=== PATIENT | male | born 1935 | race Caucasian/White ===

== ENCOUNTER 2018-04-02 10:12 | Emergency (ER) | payer OTHER ==
[2018-04-02] MEDS ORDERED: NS 1,000 ML IV ONE (10:26)
--- NOTE | 2018-04-02 10:43 | EDPHY ---
H & P Stated Complaint: no-prod cough/fever/chills x5D [employer] [address] [address] [employer]. Time Seen by Provider: 04/02/18 10:23 HPI/ROS: CHIEF COMPLAINT: Fever, chills, rigors, cough HISTORY OF PRESENT ILLNESS: The patient presents to the ED with 4 days of progressive fever, chills, rigors and a dry nonproductive cough. The patient is currently visiting [place] from [facility]. The patient denies any vomiting or diarrhea. The patient does report a prior history of TIA and cholecystectomy. The patient denies any skin rash. He does complain of myalgias and arthralgias. The patient reports that his symptoms are moderate to severe in nature. REVIEW OF SYSTEMS: A comprehensive 10 point review of systems is otherwise negative aside from elements mentioned in the history of present illness. Source: Patient Exam Limitations: No limitations - Personal History Current Tetanus/Diphtheria Vaccine: Yes - Medical/Surgical History Hx Asthma: No Hx Chronic Respiratory Disease: No Hx Diabetes: No Hx Cardiac Disease: No Hx Renal Disease: No Hx Cirrhosis: No Hx Alcoholism: No Hx HIV/AIDS: No Hx Splenectomy or Spleen Trauma: No Other PMH: Cardiac stent, cholycystectomy, - Social History Smoking Status: Never smoked - Physical Exam Exam: General Appearance: Alert, no distress Eyes: Pupils equal and round no pallor or injection ENT, Mouth: Mucous membranes moist Respiratory: There are no retractions, lungs are clear to auscultation Cardiovascular: Tachycardic Gastrointestinal: Abdomen is soft and nontender, no masses, bowel sounds normal Neurological: A&O, normal motor function, normal sensory exam, normal cranial nerves Skin: Warm and dry, no rashes, no petechiae or purpura noted Musculoskeletal: Neck is supple nontender, specifically no meningeal symptoms Extremities: symmetrical, full range of motion Constitutional: Initial Vital Signs Temperature (C) 36.5 C 04/02/18 10:18 Heart Rate 109 H 04/02/18 10:18 Respiratory Rate 20 04/02/18 10:18 Blood Pressure 172/93 H 04/02/18 10:18 O2 Sat (%) 92 04/02/18 10:18 O2 Delivery Mode Room Air O2 (L/minute) 2 Allergies/Adverse Reactions: codeine Allergy (Verified 04/02/18 10:18) Medical Decision Making - Diagnostics Imaging Results: Imaging Impressions Chest X-Ray 04/02/18 10:26 Impression: Right upper lobe infiltrate versus nodule versus rib abnormality. Possible mild right hilar adenopathy. Considering the patient's cough, consider appropriate treatment followed by short interval follow-up chest x-ray. If there are any old outside chest x-rays, we would be happy to review them to assess for interval change. If the nodule persists or if the patient will not be treated for infection, then recommend noncontrast chest CT. Results discussed with Dr. Velasquez Jordan at 10:54 AM. ED Course/Re-evaluation: Patient presents the ED with flu-like symptoms for the past 5 days. The patient 's influenza a test is positive. Chest x-ray demonstrates underlying changes most consistent with a likely infection from his influenza. The patient's laboratory studies are otherwise normal. Patient did receive IV fluid rehydration in the emergency department. Given the duration of the patient's symptoms he is not a candidate for Tamiflu or other antiviral medications. The patient will be discharged home with instructions to take Tylenol as needed for fever management. He is given a prescription for Zofran. Patient is advised to return to the ED for markedly worsening respiratory symptoms or other acute concerns. Differential Diagnosis: Differential diagnosis considered includes influenza, pneumonia, dehydration, metabolic derangement, viral syndrome - Data Points Laboratory Results: Laboratory Results 04/02/18 10:40 04/02/18 10:40 04/02/18 04/02/18 04/02/18 10:40 10:40 10:25 WBC 8.73 10^3/uL 10^3/uL (3.80-9.50) RBC 4.26 10^6/uL L 10^6/uL (4.40-6.38) Hgb 13.3 g/dL L g/dL (13.7-17.5) Hct 39.2 % L % (40.0-51.0) MCV 92.0 fL fL (81.5-99.8) MCH 31.2 pg pg (27.9-34.1) MCHC 33.9 g/dL g/dL (32.4-36.7) RDW 13.2 % % (11.5-15.2) Plt Count 205 10^3/uL 10^3/uL (150-400) MPV 10.6 fL fL (8.7-11.7) Neut % (Auto) 75.2 % H % (39.3-74.2) Lymph % (Auto) 15.2 % % (15.0-45.0) [place] % (Auto) 8.7 % % (4.5-13.0) Eos % (Auto) 0.2 % L % (0.6-7.6) Baso % (Auto) 0.1 % L % (0.3-1.7) Nucleat RBC Rel Count 0.0 % % (0.0-0.2) Absolute Neuts (auto) 6.56 10^3/uL H 10^3/uL (1.70-6.50) Absolute Lymphs (auto) 1.33 10^3/uL 10^3/uL (1.00-3.00) Absolute Monos (auto) 0.76 10^3/uL 10^3/uL (0.30-0.80) Absolute Eos (auto) 0.02 10^3/uL L 10^3/uL (0.03-0.40) Absolute Basos (auto) 0.01 10^3/uL L 10^3/uL (0.02-0.10) Absolute Nucleated RBC 0.00 10^3/uL 10^3/uL (0-0.01) Immature Gran % 0.6 % % (0.0-1.1) Immature Gran # 0.05 10^3/uL 10^3/uL (0.00-0.10) Sodium 138 mEq/L mEq/L (135-145) Potassium 4.0 mEq/L mEq/L (3.5-5.2) Chloride 105 mEq/L mEq/L (97-110) Carbon Dioxide 22 mEq/l mEq/l (22-31) Anion Gap 11 mEq/L mEq/L (6-14) BUN 23 mg/dL mg/dL (7-23) Creatinine 1.2 mg/dL mg/dL (0.7-1.3) Estimated GFR 58 Glucose 172 mg/dL H mg/dL (70-100) Calcium 8.4 mg/dL L mg/dL (8.5-10.4) Nasal Influenza A PCR FLU A DETECTED H (NEGATIVE) Nasal Influenza B PCR NEGATIVE FOR FLU B (NEGATIVE) Medications Given: Discontinued Medications Acetaminophen (Tylenol) 650 mg PO EDNOW ONE Stop: 04/02/18 11:42 Last Admin: 04/02/18 11:44 Dose: 650 mg Sodium Chloride (Ns) 1,000 mls @ 0 mls/hr IV ONCE ONE; Wide Open PRN Reason: Protocol Stop: 04/02/18 10:27 Last Admin: 04/02/18 10:40 Dose: 1,000 mls Departure - Departure Disposition: Home, Routine, Self-Care Clinical Impression: Influenza A Condition: Serious Instructions: Influenza (ED) Additional Instructions: 1. Tylenol and ibuprofen as needed for pain and fever. 2. Zofran as needed for nausea. 3. Albuterol inhaler 2 puffs every 4 hr as needed for cough and shortness of breath. 4. Please return to the ED for markedly worsening respiratory symptoms or other acute concerns.
[2018-04-02 10:53] LABS: PLATELET COUNT 205 10^3/uL (150-400)
[2018-04-02] MEDS ORDERED: ACETAMINOPHEN 325 MG TAB PO ONE (11:41)
[2018-04-02 12:24] VITALS: BP 128/75
== END 2018-04-02 12:22 | disposition home or self-care (01) ==
DX: J09.X2 Influenza due to identified novel influenza A virus with other respiratory manifestations (principal); E86.9 Volume depletion, unspecified; Z95.5 Presence of coronary angioplasty implant and graft; Z90.89 Acquired absence of other organs; Z86.73 Personal history of transient ischemic attack (TIA), and cerebral infarction without residual deficits

== ENCOUNTER 2018-04-03 16:13 | Inpatient (IN) | payer OTHER ==
--- NOTE | 2018-04-03 16:22 | EDPHY ---
H & P Time Seen by Provider: 04/03/18 16:22 HPI/ROS: CHIEF COMPLAINT: Recently diagnosed with influenza, increasing weakness, fall at home HISTORY OF PRESENT ILLNESS: The patient was seen at the emergency department yesterday and diagnosed with influenza. He was discharged home with instructions to use Zofran, Tylenol and ibuprofen. Over the past day he is becoming increasingly weak and dehydrated. He had a fall while walking earlier today. The patient did strike his eyebrow. He denies significant headache. He is not anticoagulated. He is reporting increasing dyspnea. He did have one episode of acute vomiting. REVIEW OF SYSTEMS: A comprehensive 10 point review of systems is otherwise negative aside from elements mentioned in the history of present illness. Source: Patient Exam Limitations: No limitations - Medical/Surgical History Hx Asthma: No Hx Chronic Respiratory Disease: No Hx Diabetes: No Hx Cardiac Disease: No Hx Renal Disease: No Hx Cirrhosis: No Hx Alcoholism: No Hx HIV/AIDS: No Hx Splenectomy or Spleen Trauma: No Other PMH: Cardiac stent, cholycystectomy, - Social History Smoking Status: Never smoked - Physical Exam Exam: General Appearance: Elderly male, appears weak Eyes: Pupils equal and round no pallor or injection ENT, Mouth: Dry mucous membranes Respiratory: Rhonchorous breath sounds bilaterally Cardiovascular: Regular rate and rhythm Gastrointestinal: Abdomen is soft and nontender, no masses, bowel sounds normal Neurological: 5/5 strength all 4 extremities Skin: Warm and dry, no rashes Musculoskeletal: Neck is supple nontender Extremities: symmetrical, full range of motion Psychiatric: Patient is oriented X 3, there is no agitation Constitutional: Initial Vital Signs Temperature (C) 39.1 C H 04/03/18 16:41 Heart Rate 94 04/03/18 16:41 Respiratory Rate 22 H 04/03/18 16:41 Blood Pressure 128/94 H 04/03/18 16:41 O2 Sat (%) 85 L 04/03/18 16:41 O2 Delivery Mode Room Air O2 (L/minute) 6 Allergies/Adverse Reactions: codeine Allergy (Verified 04/02/18 10:18) Home Medications: Medication Instructions Recorded Albuterol [Ventolin Hfa Inhaler] 2 puffs IH QID PRN #1 mdi 04/02/18 Cholecalciferol (Vitamin D3) 2,000 unit PO HS 04/03/18 [Vitamin D3] Clopidogrel Bisulfate [Clopidogrel] 75 mg PO DAILY 04/03/18 Omeprazole 40 mg PO DAILY 04/03/18 Pravastatin Sodium 40 mg PO HS 04/03/18 Medical Decision Making - Diagnostics EKG Interpretation: EKG: Complete interpretation has been separately recorded in the [facility] archive. Summary impression: Sinus rhythm, rate 94 Imaging Results: Imaging Impressions Chest X-Ray 04/03/18 16:38 Impression: 1. Progression of moderate multilobar consolidation/pneumonia on the right. ED Course/Re-evaluation: ED course: The patient presents the ED with progressive influenza. The patient is now developed significant hypoxemia which corrects with 6 liters/minute oxygen. Chest x-ray now demonstrates an increasing right sided pulmonary infiltrate. Patient had an IV established. Blood cultures x2 were obtained. The patient was started on Levaquin. Patient's initial lactic acid returned at 4.3. The patient qualifies for both severe sepsis and septic shock. A 2300 mL bolus was ordered. The patient has not had symptoms of hypotension throughout his stay in the emergency department. Consultation is made with the hospitalist service for admission at 5:45 p.m.. He will be admitted by Dr. Little 6:30 p.m.: The patient is lactic acid has increased to 4.9. Blood pressure is 92/55 with a heart rate of 95. The patient will be admitted to the intensive care unit. An additional 1 L of normal saline has been ordered. Family has requested PICC line over a central venous catheter placed in the emergency department. I consulted with Dr. Garcia, the on-call interventional radiologist, who will come place a PICC line tonight. 7:00 p.m.: After several documented blood pressures below 90/60 the patient has been started on Levophed. 7:15 p.m.: Patient's systolic blood pressure went to 170/92 after Levophed was started. The drip was discontinued. 7:30 p.m.: To IR for PICC line. Arterial lactic acid 3.9. ABG 7. consistent with compensated metabolic acidosis/respiratory alkalosis. Patient will be transferred to the intensive care unit following placement of his PICC catheter. Differential Diagnosis: Differential diagnosis considered includes sepsis, severe sepsis, septic shock, pneumonia, influenza Critical Care Time: Critical care time exclusive of procedures and exclusive of the PA's time was 65 minutes, performed by myself, Eugenio Jordan MD. Patient presents to the ED with septic shock secondary to influenza. The patient is started on broad- spectrum antibiotics. Central venous catheter will be placed. The patient will be admitted to the intensive care unit. - Data Points Laboratory Results: Laboratory Results 04/03/18 16:43 04/03/18 16:43 04/03/18 04/03/18 04/03/18 16:48 16:43 16:43 WBC 3.36 10^3/uL L 10^3/uL (3.80-9.50) RBC 3.90 10^6/uL L 10^6/uL (4.40-6.38) Hgb 12.3 g/dL L g/dL (13.7-17.5) Hct 35.4 % L % (40.0-51.0) MCV 90.8 fL fL (81.5-99.8) MCH 31.5 pg pg (27.9-34.1) MCHC 34.7 g/dL g/dL (32.4-36.7) RDW 13.4 % % (11.5-15.2) Plt Count 195 10^3/uL 10^3/uL (150-400) MPV 11.3 fL fL (8.7-11.7) Neut % (Auto) Not Reported Lymph % (Auto) Not Reported [place] % (Auto) Not Reported Eos % (Auto) Not Reported Baso % (Auto) Not Reported Nucleat RBC Rel Count Not Reported Absolute Neuts (auto) Not Reported Absolute Lymphs (auto) Not Reported Absolute Monos (auto) Not Reported Absolute Eos (auto) Not Reported Absolute Basos (auto) Not Reported Absolute Nucleated RBC Not Reported Immature Gran % Not Reported Seg Neutrophils % 36.4 % % Band Neutrophils % 27.3 % % Lymphocytes % 17.2 % % Monocytes % 4.0 % % Eosinophils % 0.0 % % Basophils % 0.0 % % Metamyelocytes % 14.1 % % Myelocytes % 0.0 % % Promyelocytes % 0.0 % % Blast Cells % 0.0 % % Immature Gran # Not Reported Absolute Seg Neuts 1.22 10^3/uL L 10^3/uL (1.70-6.50) Absolute Band Neuts 0.92 10^3/uL H 10^3/uL (0.00-0.70) Absolute Lymphocytes 0.58 10^3/uL L 10^3/uL (1.00-3.00) Absolute Monocytes 0.13 10^3/uL L 10^3/uL (0.30-0.80) Absolute Eosinophils 0.00 10^3/uL L 10^3/uL (0.03-0.40) Absolute Basophils 0.00 10^3/uL L 10^3/uL (0.02-0.10) Absolute Metamyelocyte 0.47 10^3/mL H 10^3/mL (0.00-0.00) Absolute Myelocytes 0.00 10^3/mL 10^3/mL (0.00-0.00) Absolute Promyelocytes 0.00 10^3/uL 10^3/uL (0.00-0.00) Absolute Plasma Cells 0.03 10^3/uL H 10^3/uL (0.00-0.00) Nucleated RBCs 0 /100 WBC /100 WBC (0-0) Absolute Blast Cells 0.00 10^3/uL 10^3/uL (0.00-0.00) Plasma Cells % 1.0 % % Platelet Estimate ADEQUATE (ADEQ) Giant Platelets PRESENT H Echinocytes 1+ H Smear Review By Pending Sodium 134 mEq/L L mEq/L (135-145) Potassium 3.9 mEq/L mEq/L (3.5-5.2) Chloride 105 mEq/L mEq/L (97-110) Carbon Dioxide 18 mEq/l L mEq/l (22-31) Anion Gap 11 mEq/L mEq/L (6-14) BUN 30 mg/dL H mg/dL (7-23) Creatinine 1.4 mg/dL H mg/dL (0.7-1.3) Estimated GFR 49 Glucose 168 mg/dL H mg/dL (70-100) Calcium 7.8 mg/dL L mg/dL (8.5-10.4) POC Troponin I 0.02 ng/mL ng/mL (0.00-0.08) Medications Given: Sodium Chloride (Ns) 1,000 mls @ 125 mls/hr IV CONT STANLEY Stop: 09/30/18 17:29 Last Admin: 12/25/18 18:56 Dose: 1,000 mls Norepinephrine 4 mg/ Sodium (Chloride) 504 mls @ 0 mls/hr IV CONT STANLEY; Per Protocol PRN Reason: Protocol Stop: 09/30/18 19:29 Last Admin: 04/03/18 19:19 Dose: 504 mls Discontinued Medications Acetaminophen (Tylenol) 1,000 mg PO EDNOW ONE Stop: 04/03/18 17:14 Last Admin: 04/03/18 17:26 Dose: 1,000 mg Sodium Chloride (Ns) 1,000 mls @ 0 mls/hr IV ONCE ONE; Wide Open PRN Reason: Protocol Stop: 04/03/18 16:27 Last Admin: 04/03/18 16:49 Dose: 1,000 mls Sodium Chloride (Ns) 1,000 mls @ 0 mls/hr IV ONCE ONE; Wide Open PRN Reason: Protocol Stop: 04/03/18 16:27 Last Admin: 04/03/18 16:49 Dose: 1,000 mls Levofloxacin/Dextrose (Levaquin 750 Mg (Premix)) 150 mls @ 100 mls/hr IV EDNOW ONE PRN Reason: Protocol Stop: 04/03/18 18:34 Last Admin: 04/03/18 17:28 Dose: 150 mls Sodium Chloride (Ns) 1,000 mls @ 0 mls/hr IV ONCE ONE; Wide Open PRN Reason: Protocol Stop: 04/03/18 18:26 Last Admin: 04/03/18 18:25 Dose: 1,000 mls Point of Care Test Results: Chemistry 04/03/18 16:48 POC Troponin I 0.02 ng/mL ng/mL (0.00-0.08) Departure - Departure Disposition: [facility] Inpatient Acute Clinical Impression: Influenza, Septic shock, Pneumonia Condition: Critical
[2018-04-03] MEDS ORDERED: NS 1,000 ML IV ONE ×3 (16:26→18:25)
--- NOTE | 2018-04-03 17:06 | CPEKG ---
Test Reason : OPEN Blood Pressure : / mmHG Vent. Rate : 094 BPM Atrial Rate : 094 BPM P-R Int : 129 ms QRS Dur : 094 ms QT Int : 340 ms P-R-T Axes : 070 076 046 degrees QTc Int : 426 ms Sinus rhythm Confirmed by Eugenio Jordan ([id number]) on 04/03/2018 5:06:39 PM Referred By: Confirmed By:Eugenio Jordan
[2018-04-03 17:08] LABS: PLATELET COUNT 195 10^3/uL (150-400)
[2018-04-03] MEDS ORDERED: ACETAMINOPHEN 500 MG TAB PO ONE (17:13)
[2018-04-03] MEDS ORDERED: ONDANSETRON DISINTEGRATING 4 MG TAB PO PRN (17:20)
[2018-04-03] MEDS ORDERED: ACETAMINOPHEN 325 MG TAB PO PRN (17:20)
[2018-04-03] MEDS ORDERED: ONDANSETRON 4 MG/2 ML VIAL IVP PRN (17:20)
[2018-04-03] MEDS ORDERED: NS 1,000 ML IV SCH (17:30)
[2018-04-03] MEDS ORDERED: NS 2,300 ML IV ONE ×2 (17:34→17:49)
--- NOTE | 2018-04-03 17:53 | PDGENHP ---
History and Physical - Chief Complaint Influenza, pneumonia - History of Present Illness This is a 82 y/o male who presented to the emergency room yesterday d/t 4-5 days worth of general malaise, fevers, chills and a non-productive cough. He tested positive for influenza, did not receive tamiflu/anti-viral d/t the onset of his symptoms. He was discharged with Zofran, Tylenol, and Ibuprofen and instructed to come back to the emergency room should his condition worsen. He presents today with progressive weakness and dehydration. He is so weak, he fell and hit his right eye/eyebrow on the rim of the toilet seat. Comparing CXR from yesterday to today shows an increasing right sided pulmonary infiltrate. Initially he was febrile and hemodynamically stable. Within a two hour time frame, he decompensated with hypotensive, tachypneic, tachycardic, hypoxemic. He has maintained MAP > 65. Received Tylenol and now has a low-grade fever of 37.6c. He is in septic shock. He is being admitted for treatment and management of his septic shock, pneumonia , and influenza. Past Medical/Surgical History 1. Cardiac stent (on plavix) 2. Hx of TIA 3. Cholecystectomy Social 1. Visiting from [place], [place] 2. Denies tobacco or alcohol use Vital Signs 128/94 --> 90/55 94 HR--> 93 22 Respirations--> 42 39.1c--> 37.6c 85% RA -- 92% 6L NC --> 92% oxymask History Information - Allergies/Home Medication List Allergies/Adverse Reactions: codeine Allergy (Verified 04/02/18 10:18) Home Medications: Cholecalciferol (Vitamin D3) [Vitamin D3] 2,000 unit PO HS 04/03/18 [Last Taken 04/01/18] Clopidogrel Bisulfate [Clopidogrel] 75 mg PO DAILY 04/03/18 [Last Taken 04/01/18 ] Omeprazole 40 mg PO DAILY 04/03/18 [Last Taken 04/01/18] Pravastatin Sodium 40 mg PO HS 04/03/18 [Last Taken 04/01/18] I have personally reviewed and updated: family history, medical history, social history, surgical history Past Medical History: See HPI list - Surgical History Additional surgical history: See HPI list - Family History Positive for: non-pertinent - Social History Smoking Status: Never smoked Alcohol Use: None Drug Use: None Review of Systems Review of Systems: ROS: 10pt was reviewed & negative except for what was stated in HPI & below Constitutional: Reports: malaise, recent illness, weakness EENMT: Reports: no symptoms Cardiac: Reports: lightheadedness Respiratory: Reports: cough, shortness of breath Gastrointestinal: Reports: vomitting Genitourinary: Reports: no symptoms Muscolosketal: Reports: no symptoms Skin: Reports: no symptoms Neurological: Reports: weakness Hematologic/Lymphatic: Reports: no symptoms Immunologic/Allergy: Reports: other (See allergy list) Physical Exam Physical Exam: Lab data and imaging reviewed Temp Pulse Resp BP Pulse Ox 39.1 C H 97 22 H 100/55 L 93 04/03/18 16:41 04/03/18 17:29 04/03/18 17:29 04/03/18 17:29 04/03/18 17:29 O2 (L/minute) 6 Constitutional: other (Pale-appearing male in respiratory distress ) Eyes: PERRL, anicteric sclera, EOMI Ears, Nose, Mouth, Throat: moist mucous membranes, hearing normal, ears appear normal, no oral mucosal ulcers Cardiovascular: tachycardia Peripheral Pulses: 1+: dorsalis-pedis (R) (Radial 2+), dorsalis-pedis (L) ( Radial 2+) Respiratory: respiratory distress Gastrointestinal: normoactive bowel sounds, soft, non-tender abdomen, no palpable masses Genitourinary: no bladder fullness, no bladder tenderness Skin: warm, normal color, no rashes or abrasions, no fluctuance, no induration, No mottled Musculoskeletal: generalized weakness Neurologic: AAOx3, sensation intact bilaterally, weakness, CN II-XII Intact Psychiatric: interacting appropriately, not anxious, not encephalopathic, thought process linear Lymph, Heme, Immunologic: no cervical LAD, no supraclavicular LAD Lab Data & Imaging Review 04/03/18 16:43 04/03/18 16:43 WBC 3.36 10^3/uL (3.80-9.50) L 04/03/18 16:43 RBC 3.90 10^6/uL (4.40-6.38) L 04/03/18 16:43 Hgb 12.3 g/dL (13.7-17.5) L 04/03/18 16:43 Hct 35.4 % (40.0-51.0) L 04/03/18 16:43 MCV 90.8 fL (81.5-99.8) 04/03/18 16:43 MCH 31.5 pg (27.9-34.1) 04/03/18 16:43 MCHC 34.7 g/dL (32.4-36.7) 04/03/18 16:43 RDW 13.4 % (11.5-15.2) 04/03/18 16:43 Plt Count 195 10^3/uL (150-400) 04/03/18 16:43 MPV 11.3 fL (8.7-11.7) 04/03/18 16:43 Neut % (Auto) Not Reported 04/03/18 16:43 Lymph % (Auto) Not Reported 04/03/18 16:43 [place] % (Auto) Not Reported 04/03/18 16:43 Eos % (Auto) Not Reported 04/03/18 16:43 Baso % (Auto) Not Reported 04/03/18 16:43 Nucleat RBC Rel Count Not Reported 04/03/18 16:43 Absolute Neuts (auto) Not Reported 04/03/18 16:43 Absolute Lymphs (auto) Not Reported 04/03/18 16:43 Absolute Monos (auto) Not Reported 04/03/18 16:43 Absolute Eos (auto) Not Reported 04/03/18 16:43 Absolute Basos (auto) Not Reported 04/03/18 16:43 Absolute Nucleated RBC Not Reported 04/03/18 16:43 Immature Gran % Not Reported 04/03/18 16:43 Seg Neutrophils % 36.4 % 04/03/18 16:43 Band Neutrophils % 27.3 % 04/03/18 16:43 Lymphocytes % 17.2 % 04/03/18 16:43 Monocytes % 4.0 % 04/03/18 16:43 Eosinophils % 0.0 % 04/03/18 16:43 Basophils % 0.0 % 04/03/18 16:43 Metamyelocytes % 14.1 % 04/03/18 16:43 Myelocytes % 0.0 % 04/03/18 16:43 Promyelocytes % 0.0 % 04/03/18 16:43 Blast Cells % 0.0 % 04/03/18 16:43 Immature Gran # Not Reported 04/03/18 16:43 Absolute Seg Neuts 1.22 10^3/uL (1.70-6.50) L 04/03/18 16:43 Absolute Band Neuts 0.92 10^3/uL (0.00-0.70) H 04/03/18 16:43 Absolute Lymphocytes 0.58 10^3/uL (1.00-3.00) L 04/03/18 16:43 Absolute Monocytes 0.13 10^3/uL (0.30-0.80) L 04/03/18 16:43 Absolute Eosinophils 0.00 10^3/uL (0.03-0.40) L 04/03/18 16:43 Absolute Basophils 0.00 10^3/uL (0.02-0.10) L 04/03/18 16:43 Absolute Metamyelocyte 0.47 10^3/mL (0.00-0.00) H 04/03/18 16:43 Absolute Myelocytes 0.00 10^3/mL (0.00-0.00) 04/03/18 16:43 Absolute Promyelocytes 0.00 10^3/uL (0.00-0.00) 04/03/18 16:43 Absolute Plasma Cells 0.03 10^3/uL (0.00-0.00) H 04/03/18 16:43 Nucleated RBCs 0 /100 WBC (0-0) 04/03/18 16:43 Absolute Blast Cells 0.00 10^3/uL (0.00-0.00) 04/03/18 16:43 Plasma Cells % 1.0 % 04/03/18 16:43 Platelet Estimate ADEQUATE (ADEQ) 04/03/18 16:43 Giant Platelets PRESENT H 04/03/18 16:43 Echinocytes 1+ H 04/03/18 16:43 VBG Lactic Acid 4.3 mmol/L (0.7-2.1) H 04/03/18 17:16 Sodium 134 mEq/L (135-145) L 04/03/18 16:43 Potassium 3.9 mEq/L (3.5-5.2) 04/03/18 16:43 Chloride 105 mEq/L (97-110) 04/03/18 16:43 Carbon Dioxide 18 mEq/l (22-31) L 04/03/18 16:43 Anion Gap 11 mEq/L (6-14) 04/03/18 16:43 BUN 30 mg/dL (7-23) H 04/03/18 16:43 Creatinine 1.4 mg/dL (0.7-1.3) H 04/03/18 16:43 Estimated GFR 49 04/03/18 16:43 Glucose 168 mg/dL (70-100) H 04/03/18 16:43 Calcium 7.8 mg/dL (8.5-10.4) L 04/03/18 16:43 POC Troponin I 0.02 ng/mL (0.00-0.08) 04/03/18 16:48 Assessment & Plan Plan: 1. Septic shock: severe sepsis and septic shock protocol initiated. He was fluid bolus 3L NS and started on 2.3L NS over 30 minutes. Initially lactate was 4.3 and rechecked after bolus with a 4.9 return. Hemodynamically unstable; hypotensive, tachycardic, tachypneic, hypoxemic. New lactate acid pending. ABGs pending. Dr. Velasquez Suarez having either a PICC or central line placed. Levophed ordered. OK to give through IV if no PICC/central line access for a short period of time (less than 2 hours). If this is the case, will need to switch to PICC/central line after 2 hours. 2.Superimposed pneumonia on influenza: Will treat pneumonia with Azithromycin and Rocephin IVPB. Encourage IS. Repeat BMP/CBC tomorrow. IVF. 3. Cardiac stent: EKG SR. No chest pains. May resume plavix tomorrow at 1700. He may continue atorvastatin, albuterol PRN, and omeprazole tomorrow. Diet: Regular VTE ppx: SCDs Code: Full Dispo: Admit to inpatient
[2018-04-03] MEDS ORDERED: ALTEPLASE 2 MG VIAL IVP ONE (18:35)
[2018-04-03] MEDS: NOREPINEPHRINE BITARTRATE 4 MG in NS 500 ML IV SCH (19:19)
[2018-04-03] MEDS ORDERED: NOREPINEPHRINE BITARTRATE 16 MG in NS 250 ML IV SCH (19:30)
[2018-04-03] MEDS ORDERED: ALBUTEROL 60 PUFFS/8 GM MDI IH PRN (20:06)
[2018-04-03] MEDS ORDERED: LIDOCAINE 2% JELLY 20 ML (UROJECT) ONE ×2 (20:56→22:56)
--- NOTE | 2018-04-03 21:13 | HOSPPROG ---
Hospitalist Progress Note Assessment/Plan: I have personally seen and evaluated patient. I agree with the assessment and plan as outline by PAKeeley, in a separate note. Objective: Vital Signs Temp Pulse Resp BP Pulse Ox 37.6 C 97 30 H 102/55 L 90 L 04/03/18 18:05 04/03/18 20:00 04/03/18 20:00 04/03/18 20:00 04/03/18 20:00 04/02/18 04/03/18 04/04/18 05:59 05:59 05:59 Intake Total 3500 Output Total 50 Balance 3450 ICD10 Worksheet Patient Problems: Problems Problem Status Onset Influenza Acute Pneumonia Acute Septic shock Acute
--- NOTE | 2018-04-03 21:45 | PDCONSULT ---
Advanced Nursing Professor Note: ASSESSMENT 82-year-old previously healthy male admitted with post influenza pneumonia leading to acute hypoxemic respiratory failure, ARDS and septic shock # septic shock # ARDS, severe - PaO2:FiO2 <150 # influenza # pneumonia, post influenza # acute hypoxemic respiratory failure # leukopenia # ASA # coronary disease # advanced age PLAN # patient has risk factors for MRSA pneumonia given prior influenza # broad antibiotics to vancomycin and Zosyn # add Tamiflu # continue azithromycin # initiate paralysis with cisatracurium # proning until PaO2:FiO2 >150, minimum prone intervals 16 hr.max time supine on back 4 hr. # norepinephrine for blood pressure support # if patient requires >15 15 micrograms/minute of norepinephrine will add vasopressin infusion # a.m. cxr # repeat ABG, lactate and ionized calcium now # if abg not improved and/or respiratory status worsens, will proceed with intubation and bronchoscopy # trend CBC, BMP # hold Plavix # continue statin # Feeding - NPO # Analgesia APAP, # Sedation none # Thromboprophylaxis - SQ hep # Head of bed elevated # Ulcer prophylaxis - not indicated # Glucose SSI # Skin no skin breakdown # Delirium - delirium precautions Patient is critical ill due to life threatening organ dysfunction and failure and is at high risk for decompensation and . Total critical care time, excluding procedures: 145 min spent interviewing examining patient reviewing chart and imaging as well as discussions with family and nursing CONSULT I was asked by Dr. Mario Little of [facility] to evaluate this patient for ICU care in the setting of septic shock and respiratory failure ABX EVENTS 04/03/2018 intubation, bronchoscopy, arterial line, PICC line CX Data 04/03/2018 blood cultures pending IMAGING I personally reviewed interpreted patient's radiographic images well as formal radiologist reads 04/03/2018 interval parenchymal interstitial opacifications throughout right- sided lung fulton. Indistinctness and left pulmonary artery and subtle increased interstitial markings in left lung base. Chief complaint Shortness of breath HPI 82-year-old male admitted to the ICU with post influenza pneumonia and septic shock. Patient was visiting family in [place] from [facility] and had gradually increasing URI symptoms. He initially presented 04/02/2018 to [facility] emergency room and tested positive for influenza. The time he had a clear chest x-ray only mild respiratory symptoms. He was not treated with Tamiflu given duration of symptoms prior to seeking treatment. Today he re-presented with fatigue worsening shortness of breath and nonproductive cough. He also complains of fevers and chills as well as nausea. He denies vomiting syncope, chest pain, leg swelling, rash, hot or cold intolerance Allergies Codeine Home medications Medication reconciliation was reviewed performed Cholecalciferol, Plavix (has not taken in 4-5 days), omeprazole 40 mg daily, pravastatin 40 mg Past medical and surgical history Coronary artery disease status post remote PCI, hypovitaminosis D, hyperlipidemia Social history Lives in [facility], exercises 4 to 5 times a week, attends pilates weekly. nonsmoker nondrinker Review of systems A comprehensive 10 point review of systems was obtained is negative except as per HPI Physical exam Vitals temperature 39.6 degrees C, heart rate 94, blood pressure 90/50 on low- dose Levophed, respiratory rate 30s satting 98% on high-flow nasal cannula 40 liters/minute, 80% FiO2 GEN: Mild distress, ill-appearing lying in bed NEURO: A&Ox3, CN 2-12 GI HEENT: Dry mucous membranes PERRL, EOMI, OP clear NECK: supple, trachea midline CHEST normal shape, no pes excavatum CVS: rrr no m/r/g PULM: Rhonchi right-sided lung fulton, no wheezes no egophony ABD: soft, NT, ND, NABS EXT: no swelling, no cyanosis, full ROM SKIN: warm, dry, intact, no rash PSYCH CAM negative, appropriate affect Labs Reviewed significant for leukopenia, lactic acidosis, low abg
[2018-04-03] MEDS: OSELTAMIVIR 6 MG/ML UDSYR PO SCH (21:46)
[2018-04-03] MEDS ORDERED: PIPERACILLIN NA/TAZO 4.5 GM in D5W 100 ML IV SCH (22:00)
[2018-04-03] MEDS ORDERED: VANCOMYCIN 1.25 GM in NS 250 ML IV ONE (22:00)
[2018-04-03] MEDS ORDERED: fentaNYL/NACL 100 ML IV SCH (22:14)
[2018-04-03] MEDS ORDERED: LIDOCAINE 1% 5 ML SDV ONE (22:14)
[2018-04-03] MEDS ORDERED: MIDAZOLAM 2 MG/2 ML VIAL ONE (22:54)
[2018-04-03] MEDS ORDERED: LIDOCAINE 2% VISCOUS 15 ML UDCUP ONE (22:56)
[2018-04-03] MEDS: AZITHROMYCIN IV 500 MG in D5W 250 ML IV SCH (22:59)
--- NOTE | 2018-04-03 23:52 | SUROPNOTE ---
ENRIQUE Operative Report - Surgery Procedure: Left arterial line placement with ultrasound guidance Physician: Dr. Niko Parada Anesthesiologist: N/A Anesthesia Type: N/A Indication: respiratory failure requiring frequent ABGs Consent: The patient and next of kin were counseled as to the risks, benefits, and alternatives to the procedure and they agreed to proceed. Signed consent was obtained and placed into chart. Time-Out: Prior to the procedure, time-out was performed to verify patient's name, date of , correct procedure, correct side, correct site, correct patient position, correct radiographic data, and special equipment required. Pre-Op Dx: Respiratory failure Post-Op Dx: Respiratory failure Medications: 1 cc of 1% lidocaine Description: Hand hygiene was perfomed. The site was selected as the optimal site for procedure, given considerations of sterility and safety. The left wrist region was prepped with Chloraprep prior to catheter insertion and with maximal sterile precautions (including gown, sterile gloves, mask, cap, and large sterile draping). Under real-time ultrasound guidance the left radial artery was visualized and pulsatile flow noted. Next under real-time ultrasound guidance the left radial artery was cannulated with a 20 gauge catheter over the needle. Next the wire was passed through needle into artery. Placement was confirmed with ultrasound Catheter was secured in place, sutured, and dressed. Arterial waveform was noted from the transduced pressure signal. EBL: <1 ml Complications: none Specimens Sent: none Implants: N/A F/U: routine arterial line care S Augustine Parada MD Pulmonary and Critical Care Medicine Pager [phone]
--- NOTE | 2018-04-03 23:55 | SUROPNOTE ---
ENRIQUE Operative Report - Surgery Emergency Endotracheal Intubation Date and Time 04/03/18 [id number] Operators Niko Parada MD Indication Respiratory failure Consent Emergency procedure in a critically ill decompensating patient Verbal consent was obtained via patient/next of kin Preoxygenation HFNC Medications Versed 4 mg Ketamine 200 mg Rocuronium 100 mg Equipment Mac 3 Bougie 7.5 ETT Maccormick martinez grade view intubation 3a due to not seating in epiglottis with a MAC 3 and not having time to switch to a MAC 4 given severe respiratory failure and hypoxemia. Number of Attempts 1 Post Procedure Placement was confirmed with capnography, breath sounds were auscultated bilaterally. ETT mcfadden, 24 cm at teeth, CXR ordered Complications None Ricardo Parada MD Pulmonary critical care medicine
--- NOTE | 2018-04-03 23:56 | SUROPNOTE ---
ENRIQUE Operative Report - Surgery PROCEDURE NOTE: Flexible bronchoscopy with bronchoalveolar lavage Procedure Historic Sites Supervisor S Augustine Parada MD Procedure: Flexible bronchoscopy with bronchoalveolar lavage and therapeutic aspiration Indication: Pneumonia Consent: Obtained from next of kin prior to procedure after explanation of the procedure, alternatives, risks, and benefits. Anesthesiologist NA Sedation Type: deep sedation Sedation Medications: propofol, fentanyl Medications: None Procedure Summary: Time out was performed. The bronchoscope was then introduced via the endotracheal tube nasopharynx, oropharynx into the trachea. Entire tracheobronchial tree was examined. The main tayo appeared sharp. The right- sided airways were inspected first and were widely patent to the subsegmental level. The left-sided airways were then inspected and also appeared widely patent to the subsegmental level. All secretions were therapeutically aspirated. Airway mucosa appeared mildly erythematous throughout. Bronchoalveolar lavage was then performed in the right middle lobe with instillation of 100 mL with return of 45 mL of blood-tinged cloudy-appearing fluid. Upon completion of the procedure, ET tube placement was reconfirmed during withdrawal of the bronchoscope. Patient tolerated procedure well without complication. EBL none Complications: None Impression: ARDS Items to Follow-up: BAL fluid sent for AFB, and bacterial cultures, cell count and diff, cytopath non technology professional. S Augustine Parada MD Pulmonary and Critical Care Medicine [phone]
[2018-04-04] MEDS ORDERED: LIDOCAINE 1% 2 ML INJ IF ONE (00:45)
[2018-04-04] MEDS ORDERED: LIDOCAINE 2% JELLY 20 ML (UROJECT) UR ONE (00:45)
[2018-04-04] MEDS ORDERED: KETAMINE 200 MG/20 ML VIAL IVP ONE (00:45)
[2018-04-04] MEDS ORDERED: MIDAZOLAM 2 MG/2 ML VIAL IVP ONE (00:45)
[2018-04-04] MEDS ORDERED: ROCURONIUM 100 MG/10 ML VIAL IVP ONE (00:45)
[2018-04-04] MEDS: CISATRACURIUM BESYLATE IV SCH ×2 (01:06→04:41)
[2018-04-04] MEDS: D5W IV SCH ×2 (01:06→04:41)
[2018-04-04 01:09] LABS: PLATELET COUNT 202 10^3/uL (150-400)
[2018-04-04] MEDS: HYDROCORTISONE 100 MG/2 ML VIAL IVP SCH ×5 (03:07→23:43)
[2018-04-04] MEDS: PIPERACILLIN/TAZO 4.5 GM/DEX 100 ML IV SCH ×5 (03:11→22:36)
[2018-04-04] MEDS: PROPOFOL/EMULSION 100 ML IV SCH ×4 (05:22→23:48)
[2018-04-04 05:58] LABS: PLATELET COUNT 194 10^3/uL (150-400)
[2018-04-04] MEDS ORDERED: HEPARIN 5,000 UNIT/0.5 ML INJ SC SCH (06:45)
[2018-04-04] MEDS: VASOPRESSIN 25 UNIT in NS 250 ML IV SCH ×2 (08:04→14:29)
--- NOTE | 2018-04-04 08:48 | HOSPPROG ---
Hospitalist Progress Note Assessment/Plan: Septic shock 2/2 PNA with ARDS and influenza - requiring pressors (levophed plus vasopressin), lactate trending down. Still quite acidemic. -wean pressors as able -cont hydrocortisone -atbx as below AHRF - 2/2 PNA with ARDS, requiring intubation / mechanical ventilation -vent per pulm -proning -follow P/F ratio: was <150, now 220 -serial ABG's, new art line today -may be able to wean paralytic and cont propofol for sedation Influenza complicated with PNA with ARDS - at risk for MRSA with flu -cont broad spectrum atbx (Vanc plus Zosyn) -cont tamiflu -s/p bronch, follow culture data Metabolic acidosis - 2/2 lactic acidosis in setting of septic shock CAD with h/o stent - stable -holding plavix -cont statin H/O TIA - statin PPLX - Lovenox, Pepcid Full code Dispo - cont inpt/ICU, 30 min crit care Subjective: Pt is proned, sedated, paralyzed. HR down to 100's from 130's. No fevers overnight. Objective: Vital Signs Temp Pulse Resp BP Pulse Ox 36.4 C 131 H 22 H 113/78 100 04/04/18 08:00 04/04/18 08:00 04/04/18 08:00 04/04/18 08:00 04/04/18 08:00 Laboratory Results 04/04/18 05:45 04/04/18 05:45 04/03/18 04/04/18 04/05/18 05:59 05:59 05:59 Intake Total 5417 Output Total 1080 225 Balance 4337 -225 - Physical Exam Constitutional: no apparent distress Eyes: PERRL Ears, Nose, Mouth, Throat: moist mucous membranes Cardiovascular: tachycardia Respiratory: no respiratory distress, inspiratory crackles Gastrointestinal: normoactive bowel sounds, soft, non-tender abdomen Skin: warm Musculoskeletal: other (paralyzed) ICD10 Worksheet Patient Problems: Problems Problem Status Onset Influenza Acute Pneumonia Acute Septic shock Acute
--- NOTE | 2018-04-04 08:51 | PDINTPN ---
Product Managent Intern Progress Note Assessment/Plan: ASSESSMENT 82-year-old previously healthy male admitted with post influenza pneumonia leading to acute hypoxemic respiratory failure, ARDS and septic shock. Some interval improvement today after max medical therapy however still remains critically ill and high risk for # septic shock # ARDS, severe - PaO2:FiO2 <150 # influenza # pneumonia, post influenza # acute hypoxemic respiratory failure # leukopenia # ASA # coronary disease # advanced age PLAN # patient has risk factors for MRSA pneumonia given prior influenza # azithro, vancomycin and Zosyn. If cultures negative at 48 to 72 hr will discontinue vancomycin and Zosyn a narrowed to ceftriaxone and Zithromax # hydrocortisone 50 mg IV Q6 started 04/04/18 # Tamiflu # Lasix as needed to maintain an even to negative fluid balance # proning until PaO2:FiO2 >150, minimum prone intervals 16 hr.max time supine on back 4 hr. # add vasopressin given tachycardia and high SCV O2 sat # norepinephrine for blood pressure support # daily cxr # serial abgs # 6 cc/kg ideal body weight with permissive hypercapnia # wean FiO2 and peep as tolerated # trend CBC, BMP # hold Plavix # continue statin # Feeding - NPO # Analgesia APAP, # Sedation none # Thromboprophylaxis - Lovenox # Head of bed elevated # Ulcer prophylaxis - not indicated # Glucose SSI # Skin no skin breakdown # Delirium - delirium precautions Patient is critical ill due to life threatening organ dysfunction and failure and is at high risk for decompensation and . Total critical care time, excluding procedures: 135 min spent interviewing examining patient reviewing chart and imaging as well as discussions with family and nursing 04/04/18 15:10 04/04/18 15:12 Subjective: intubated, sedated, paralyzed and proned. Significant improvements in oxygenation this AM. Family updated. Objective: Vital Signs Temp Pulse Resp BP Pulse Ox 36.4 C 131 H 22 H 113/78 100 04/04/18 08:00 04/04/18 08:00 04/04/18 08:00 04/04/18 08:00 04/04/18 08:00 Laboratory Results 04/04/18 05:45 04/04/18 05:45 04/03/18 04/04/18 04/05/18 05:59 05:59 05:59 Intake Total 5417 Output Total 1080 225 Balance 4337 -225 Physical Exam - Physical Exam General Appearance: obtunded, unresponsive EENT: PERRL/EOMI, ET tube (ET tube in place), No scleral icterus (L) Neck: non-tender, normal inspection Respiratory: other (Course breath sounds bilaterally.) Cardiac/Chest: regular rate, rhythm, edema Abdomen: normal bowel sounds, No pulsatile mass Skin: normal color, warm/dry Extremities: normal inspection Neuro/Psych: other (Intubated, sedated, no focal deficits, unable to assess CAM) ICD10 Worksheet Patient Problems: Problems Problem Status Onset Influenza Acute Pneumonia Acute Septic shock Acute
[2018-04-04] MEDS ORDERED: PANTOPRAZOLE SODIUM 40 MG TAB PO SCH (09:00)
[2018-04-04] MEDS: FAMOTIDINE 20 MG/NACL 50 ML IV SCH ×2 (09:25→21:05)
[2018-04-04] MEDS: AZITHROMYCIN IV 500 MG in D5W 250 ML IV SCH (09:26)
[2018-04-04] MEDS ORDERED: FUROSEMIDE 40 MG/4 ML VIAL IVP ONE (10:10)
[2018-04-04] MEDS: ENOXAPARIN 40 MG/0.4 ML SYR SC SCH (10:28)
[2018-04-04] MEDS: VANCOMYCIN HCL/NORMAL SALINE 250 ML IV SCH ×2 (10:28→22:37)
[2018-04-04] MEDS: OSELTAMIVIR 6 MG/ML UDSYR PO SCH ×2 (10:30→18:15)
[2018-04-04] MEDS: NOREPINEPHRINE BITARTRATE 4 MG in NS 500 ML IV SCH (10:34)
--- NOTE | 2018-04-04 12:06 | PDMN ---
Medical Necessity Medical necessity: Pt meets IP criteria as of 04/03/2018 per and MCG M-160 ( sepsis); est los > 2 mn for ongoing tx and management of sepsis with hypotension , tachypnea, tachycardia, hypoxia, elevated lactate and fever secondary to pneumonia and flu; requiring ICU level care, IV ABX, ID consultation, and respiratory support with intubation.
[2018-04-04] MEDS ORDERED: MAGNESIUM HYDROXIDE 30 ML UDCUP PO PRN (12:36)
[2018-04-04] MEDS ORDERED: BISACODYL 10 MG SUPP PR PRN (12:36)
[2018-04-04] MEDS ORDERED: CALCIUM GLUCONATE 1 GM in D5W 50 ML IV ONE (13:00)
--- NOTE | 2018-04-04 15:10 | SUROPNOTE ---
ENRIQUE Operative Report - Surgery Procedure: Left ulnar arterial line placement with ultrasound guidance Physician: Dr. Niko Parada Anesthesiologist: N/A Anesthesia Type: N/A Indication: respiratory failure requiring frequent ABGs. Previous arterial line was dislodged during turning procedure to placed in prone position for ventilation Consent: The patient was counseled as to the risks, benefits, and alternatives to the procedure and they agreed to proceed. Signed consent was obtained and placed into chart. Time-Out: Prior to the procedure, time-out was performed to verify patient's name, date of , correct procedure, correct side, correct site, correct patient position, correct radiographic data, and special equipment required. Pre-Op Dx: ARDS, respiratory failure Post-Op Dx: ARDS, respiratory failure Medications: none Description: Hand hygiene was performed. The site was selected as the optimal site for procedure, given considerations of sterility and safety. The right wrist region was prepped with Chloraprep prior to catheter insertion and with maximal sterile precautions (including gown, sterile gloves, mask, cap, and large sterile draping). Under real-time ultrasound guidance the right radial artery was visualized however was too small to be safely cannulated. Next the right ulnar artery was visualized and had pulsatile flow. Under real-time ultrasound guidance the right ulnar artery was and cannulated with a 20 gauge catheter over the needle. Ultrasound confirmed placement in the radial artery Next the wire was passed through needle into artery. Catheter was secured in place, sutured, and dressed. Arterial waveform was noted from the transduced pressure signal. EBL: <1 ml Complications: none Specimens Sent: none Implants: N/A F/U: routine arterial line care S Augustine Parada MD Pulmonary and Critical Care Medicine Pager [phone]
--- NOTE | 2018-04-04 16:46 | ASMTCMCOM ---
CM Note CM Note Notes: 82yo male visiting from [place], [place] admitted for PNA, Influenza. He has a Hx of Cardiac stent, TIA, Clau. Patient on the vent, IV ABX, Tube feeds. He lives with his . CM to follow. Date Signed: 04/04/2018 04:45 PM Electronically Signed By:Padma Fletcher LCSW
[2018-04-04] MEDS ORDERED: CLOPIDOGREL BISULFATE 75 MG TAB PO SCH (17:00)
--- NOTE | 2018-04-04 17:49 | ASMTLACE ---
TARI Acuity / Level of Answers: Yes Care: Did the patient have an inpatient admission? Comorbidities - select Answers: Cerebrovascular disease all that apply (CVA, TIA, aneurysms, vasc ular dementia) Coronary Artery Disease Other Notes: Clau # of Emergency department Answers: 1-2 visits in the last 6 months Score: 8 Date Signed: 04/04/2018 05:49 PM Electronically Signed By:Padma Fletcher LCSW
[2018-04-04] MEDS: fentaNYL 100 MCG/2 ML INJ IVP PRN ×2 (19:28→22:29)
[2018-04-04] MEDS: FUROSEMIDE 40 MG/4 ML VIAL IVP SCH (21:03)
[2018-04-04] MEDS: SENNOSIDES 17.6 MG/10 ML UDL - IF LIQUID ORDERED PO SCH (22:30)
[2018-04-04] MEDS: PRAVASTATIN SODIUM 40 MG TAB PO SCH (22:30)
[2018-04-05] MEDS: PETROLAT,WHT/MIN OIL/SOD CHL 3.5 GM OPHT.OINT EACHEYE PRN ×2 (01:35→05:57)
[2018-04-05] MEDS: fentaNYL 100 MCG/2 ML INJ IVP PRN ×2 (02:14→04:31)
[2018-04-05] MEDS: VASOPRESSIN 25 UNIT in NS 250 ML IV SCH (03:57)
[2018-04-05] MEDS: PIPERACILLIN/TAZO 4.5 GM/DEX 100 ML IV SCH ×2 (03:58→10:14)
[2018-04-05 05:03] LABS: PLATELET COUNT 204 10^3/uL (150-400)
[2018-04-05] MEDS: HYDROCORTISONE 100 MG/2 ML VIAL IVP SCH ×3 (06:04→17:36)
[2018-04-05] MEDS ORDERED: PROTOCOL POTASSIUM 1 DOSE MISC PRN (06:41)
[2018-04-05] MEDS ORDERED: PROTOCOL CALCIUM 1 DOSE IV PRN (06:41)
[2018-04-05] MEDS: POTASSIUM Cl (KCl) 50 ML IV SCH ×5 (07:30→18:53)
[2018-04-05] MEDS ORDERED: POTASSIUM Cl (KCl) 10 MEQ/50 ML BAG IV ONE (07:32)
[2018-04-05] MEDS ORDERED: CALCIUM GLUCONATE 50 ML IV ONE (08:01)
[2018-04-05] MEDS ORDERED: CALCIUM GLUCONATE 1 GM in D5W 50 ML IV ONE (08:30)
[2018-04-05] MEDS: PROPOFOL/EMULSION 100 ML IV SCH (09:01)
[2018-04-05] MEDS: FAMOTIDINE 20 MG/NACL 50 ML IV SCH ×2 (09:15→20:27)
[2018-04-05] MEDS: AZITHROMYCIN IV 500 MG in D5W 250 ML IV SCH (09:16)
[2018-04-05] MEDS: SENNOSIDES 17.6 MG/10 ML UDL - IF LIQUID ORDERED PO SCH ×2 (09:17→20:30)
[2018-04-05] MEDS: ENOXAPARIN 40 MG/0.4 ML SYR SC SCH (09:17)
[2018-04-05] MEDS: OSELTAMIVIR 6 MG/ML UDSYR PO SCH ×2 (09:18→17:37)
[2018-04-05] MEDS: VANCOMYCIN HCL/NORMAL SALINE 250 ML IV SCH ×2 (10:13→21:39)
--- NOTE | 2018-04-05 10:13 | PDINTPN ---
Casting Trucker Progress Note Assessment/Plan: ASSESSMENT 82-year-old previously healthy male admitted with post influenza pneumonia leading to acute hypoxemic respiratory failure, severe ARDS and septic shock. Patient continues to improve but is still critically ill # septic shock # ARDS, severe - PaO2:FiO2 <150 on high peep. Now improving # influenza # strep pyogenes pneumonia, post influenza # acute hypoxemic respiratory failure # leukopenia # ASA # coronary disease # advanced age PLAN # Suspect pneumonia is monobacterial with strep pyogenes however given RF for staph, will continue vanc until cultures are negative for 48 hours # Zosyn narrowed to CTX 04/05/18 # s/p azithro 1.5 g total load to cover for atypical pathogens as well as pleotrophic effect in ARDS # hydrocortisone 50 mg IV Q6 started 04/04/18, continue given ongoing shock # complete 5 day Tamiflu course # Lasix as needed to maintain an even to negative fluid balance # titrate vasopressors to map greater than 65 # no longer needs to be prone # daily cxr # a.m. ABG # wean off propofol and only give fentanyl p.r.n. As patient is tolerating ET tube well and we do not want to slow his extubation by over sedating # twice daily pressure support trials # trend CBC, BMP # hold Plavix # continue statin # Feeding - tube feeds # Analgesia APAP, fentanyl # Sedation propofol as needed # Thromboprophylaxis - Lovenox # Head of bed elevated # Ulcer prophylaxis - H2 rosie # Glucose SSI # Skin no skin breakdown # Delirium - delirium precautions Patient is critical ill due to life threatening organ dysfunction and failure and is at high risk for decompensation and . Imaging Reviewed. CXR with stable opacification. Support devices in appropriate position Total critical care time, excluding procedures: 115 min spent interviewing examining patient, bedside rounds, bedside titration of ventilator, reviewing imaging and labs as well as discussions with family 04/05/18 15:25 Subjective: Reproned overnight, paralysis stopped but still synchronous with ventilator. Doing well this AM supine. Still requiring vasopressors to maintain MAP >65. Following commands when sedation is reduced. Diffuse weakness per nursing. Now 40% PEEP 8. Bronch w group A strep. 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 Complex 04/03/18 23:15 Gram Stain - Final Bronchial Washing - Right Middle Lobe Laboratory Results 04/05/18 04:20 04/05/18 04:20 04/04/18 04/05/18 04/06/18 05:59 05:59 05:59 Intake Total 5417 2837.7 Output Total 1080 3800 100 Balance 4337 -962.3 -100 Physical Exam - Physical Exam General Appearance: alert, no apparent distress EENT: PERRL/EOMI, normal ENT inspection, ET tube Neck: full range of motion, normal inspection Respiratory: other (Course breath sounds, no wheezes rhonchi or rales) Cardiac/Chest: regular rate, rhythm, edema, No gallop Abdomen: normal bowel sounds, non-tender Skin: normal color, warm/dry Extremities: normal range of motion, non-tender, normal inspection, normal capillary refill Neuro/Psych: other (Sedated, follows commands, no focal deficit) ICD10 Worksheet Patient Problems: Problems Problem Status Onset Influenza Acute Pneumonia Acute Septic shock Acute
[2018-04-05] MEDS ORDERED: ALBUMIN 5% 250 ML IV ONE (10:30)
[2018-04-05] MEDS: FUROSEMIDE 40 MG/4 ML VIAL IVP SCH ×2 (10:34→20:28)
--- NOTE | 2018-04-05 11:11 | HOSPPROG ---
Hospitalist Progress Note Assessment/Plan: Septic shock 2/2 PNA with ARDS and influenza - requiring pressors (levophed plus vasopressin), lactate trending down. Acidemia improved. -wean pressors as able -cont hydrocortisone -atbx as below AHRF - 2/2 PNA with ARDS, requiring intubation / mechanical ventilation -vent per pulm -proning -follow P/F ratio: was <150, now 280 -serial ABG's Influenza complicated with PNA with ARDS - at risk for MRSA with flu -cont broad spectrum atbx (Vanc, Zosyn, Azithro), may be able to de-escalate soon -cont tamiflu -s/p bronch, follow culture data Metabolic acidosis - 2/2 lactic acidosis in setting of septic shock CAD with h/o stent - stable -holding plavix -cont statin H/O TIA - statin PPLX - Lovenox, Pepcid Full code Dispo - cont inpt/ICU, 30 min crit care Subjective: Pt is intubated, sedated. 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 Tb Complex 04/03/18 23:15 Gram Stain - Final Bronchial Washing - Right Middle Lobe Laboratory Results 04/05/18 04:20 04/05/18 09:10 04/04/18 04/05/18 04/06/18 05:59 05:59 05:59 Intake Total 5417 2837.7 Output Total 1080 3800 250 Balance 4337 -962.3 -250 - Physical Exam Constitutional: no apparent distress Eyes: PERRL Ears, Nose, Mouth, Throat: moist mucous membranes Cardiovascular: regular rate and rhythym Respiratory: no respiratory distress, reduced air movement, inspiratory crackles Gastrointestinal: normoactive bowel sounds, soft, non-tender abdomen Skin: warm Neurologic: other (sedated on vent) ICD10 Worksheet Patient Problems: Problems Problem Status Onset Influenza Acute Pneumonia Acute Septic shock Acute
[2018-04-05] MEDS ORDERED: POTASSIUM Cl (KCl) 20 MEQ/50 ML BAG IV ONE (17:44)
[2018-04-05] MEDS: PRAVASTATIN SODIUM 40 MG TAB PO SCH (20:30)
[2018-04-06] MEDS: HYDROCORTISONE 100 MG/2 ML VIAL IVP SCH ×3 (00:10→12:15)
[2018-04-06] MEDS: POTASSIUM Cl (KCl) 50 ML IV SCH ×4 (01:25→22:48)
[2018-04-06 05:35] LABS: PLATELET COUNT 209 10^3/uL (150-400)
--- NOTE | 2018-04-06 08:37 | HOSPPROG ---
Hospitalist Progress Note Assessment/Plan: #Septic shock: off pressors #AHRF: due to PNA #Influenza A complicated by Strep A PNA: narrow abx to CTX #Hypokalemia: replete #CAD: prior stent. Plavix #Metabolic acidosis: resolved #h/o TIA: Plavix #Deconditioning: PT #Volume overload: IV Lasix #Diet: dysphagia #DVT ppx: Lovenox #Diet: regular #Disp: inpatient admission for IV abx, PT. Case d/w Dr. 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 - Physical Exam Constitutional: other (frail) Eyes: PERRL Ears, Nose, Mouth, Throat: moist mucous membranes Cardiovascular: regular rate and rhythym Respiratory: other (rales, BL) Gastrointestinal: normoactive bowel sounds Genitourinary: no bladder fullness Skin: warm Musculoskeletal: full muscle strength Neurologic: AAOx3, CN II-XII Intact Psychiatric: interacting appropriately ICD10 Worksheet Patient Problems: Problems Problem Status Onset Influenza Acute Pneumonia Acute Septic shock Acute
--- NOTE | 2018-04-06 08:59 | PDINTPN ---
Percussion Instrument Tuner Progress Note Assessment/Plan: ASSESSMENT 82-year-old previously healthy male admitted with post influenza pneumonia leading to acute hypoxemic respiratory failure, severe ARDS and septic shock. Patient continues to improve but is still critically ill # septic shock # ARDS, severe - initial PaO2:FiO2 <150 on high peep. Now improving # influenza # strep pyogenes pneumonia, post influenza # acute hypoxemic respiratory failure # leukopenia # ASA # coronary disease # advanced age # anemia - suspect dilutional plus blood draws. No overt bleeding, no e/o intravascular hemolysis PLAN # vanc stopped 04/06/18 # Zosyn narrowed to CTX 04/05/18 to complete a total 5-7 day course of IV abx # s/p azithro 1.5 g total load to cover for atypical pathogens as well as pleotrophic effect in ARDS # hydrocortisone 50 mg IV Q6 started 04/04/18 stopped 04/06/18 # complete 5 day Tamiflu course # titrate vasopressors to map greater than 65 # wean to extubate # trend CBC, BMP # check ferritin, if low will give IV iron sucrose # hold Plavix # continue statin # Feeding - tube feeds # Analgesia APAP, fentanyl # Sedation none # Thromboprophylaxis - Lovenox # Head of bed elevated # Ulcer prophylaxis - H2 rosie # Glucose SSI # Skin no skin breakdown # Delirium - delirium precautions Patient is critical ill due to life threatening organ dysfunction and failure and is at high risk for decompensation and . Imaging Reviewed. 04/05/18 CXR with mild interval improvement in opacities. Support devices in appropriate position Total critical care time, excluding procedures: 65 min spent interviewing examining patient, bedside rounds, bedside titration of ventilator, reviewing imaging and labs as well as discussions with family 04/06/18 13:19 Subjective: Maintained supine overnight on vent without issue, vasopressors weaned down, following commands. 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 Laboratory Results 04/06/18 05:15 04/06/18 05:15 04/05/18 04/06/18 04/07/18 05:59 05:59 05:59 Intake Total 2837.7 2106 Output Total 3800 4200 Balance -962.3 -2094 Physical Exam - Physical Exam General Appearance: other EENT: PERRL/EOMI, normal ENT inspection, ET tube Neck: non-tender, full range of motion Respiratory: other (Bibasilar rales), No accessory muscle use, No decreased breath sounds Cardiac/Chest: normal peripheral pulses, regular rate, rhythm, No edema Abdomen: normal bowel sounds, non-tender Back: Normal inspection Skin: normal color, warm/dry Neuro/Psych: no motor/sensory deficits, alert, normal mood/affect, oriented x 3 ICD10 Worksheet Patient Problems: Problems Problem Status Onset Influenza Acute Pneumonia Acute Septic shock Acute
[2018-04-06] MEDS: FUROSEMIDE 40 MG/4 ML VIAL IVP SCH ×2 (09:20→20:13)
[2018-04-06] MEDS: FAMOTIDINE 20 MG/NACL 50 ML IV SCH (09:34)
[2018-04-06] MEDS: ENOXAPARIN 40 MG/0.4 ML SYR SC SCH (09:34)
[2018-04-06] MEDS ORDERED: POTASSIUM CL 10 MEQ TAB PO ONE (09:45)
[2018-04-06] MEDS: OSELTAMIVIR 6 MG/ML UDSYR PO SCH ×2 (11:31→18:18)
[2018-04-06] MEDS: SENNOSIDES/DOCUSATE SODIUM TAB PO SCH ×2 (14:32→20:14)
[2018-04-06] MEDS: SENNOSIDES 17.6 MG/10 ML UDL - IF LIQUID ORDERED PO SCH (14:51)
[2018-04-06] MEDS: PRAVASTATIN SODIUM 40 MG TAB PO SCH (20:11)
[2018-04-06] MEDS: FAMOTIDINE 20 MG TAB PO SCH (20:11)
[2018-04-07] MEDS ORDERED: ALTEPLASE 2 MG VIAL IVP PRN (00:49)
[2018-04-07 04:52] LABS: PLATELET COUNT 238 10^3/uL (150-400)
[2018-04-07] MEDS: POTASSIUM Cl (KCl) 50 ML IV SCH ×2 (05:19→06:27)
[2018-04-07] MEDS: FUROSEMIDE 40 MG/4 ML VIAL IVP SCH (06:59)
[2018-04-07] MEDS ORDERED: CALCIUM GLUCONATE 50 ML IV ONE (07:27)
[2018-04-07] MEDS ORDERED: CALCIUM GLUCONATE 1 GM in D5W 50 ML IV ONE (07:30)
--- NOTE | 2018-04-07 08:55 | PDINTPN ---
Management Trainee Program Stores Progress Note Assessment/Plan: ASSESSMENT 82-year-old previously healthy male admitted with post influenza pneumonia leading to acute hypoxemic respiratory failure, severe ARDS and septic shock. Patient continues to improve but is still critically ill # septic shock # ARDS, severe - initial PaO2:FiO2 <150 on high peep. Now improving # influenza # strep pyogenes pneumonia, post influenza # acute hypoxemic respiratory failure # leukopenia # ASA # coronary disease # advanced age # anemia - suspect dilutional plus blood draws. No overt bleeding, no e/o intravascular hemolysis PLAN # vanc stopped 04/06/18 # Zosyn narrowed to CTX 04/05/18 to complete a total 5-7 day course of IV abx # s/p azithro 1.5 g total load to cover for atypical pathogens as well as pleotrophic effect in ARDS # hydrocortisone 50 mg IV Q6 started 04/04/18 stopped 04/06/18 # complete 5 day Tamiflu course # titrate vasopressors to map greater than 65 # wean to extubate # trend CBC, BMP # check ferritin, if low will give IV iron sucrose # hold Plavix # continue statin # Feeding - tube feeds # Analgesia APAP, fentanyl # Sedation none # Thromboprophylaxis - Lovenox # Head of bed elevated # Ulcer prophylaxis - H2 rosie # Glucose SSI # Skin no skin breakdown # Delirium - delirium precautions Patient is critical ill due to life threatening organ dysfunction and failure and is at high risk for decompensation and . Imaging Reviewed. 04/05/18 CXR with mild interval improvement in opacities. Support devices in appropriate position Total critical care time, excluding procedures: 65 min spent interviewing examining patient, bedside rounds, bedside titration of ventilator, reviewing imaging and labs as well as discussions with family 04/06/18 13:19 Subjective: doing well, ambulating in hallway with oxygen. no headaches, fevers, chills, nausea, vomiting Objective: Vital Signs Temp Pulse Resp BP Pulse Ox 37.2 C 84 22 H 158/79 H 95 04/07/18 07:55 04/07/18 07:55 04/07/18 07:55 04/07/18 07:55 04/07/18 07:55 Microbiology 04/03/18 23:15 Gram Stain - Final Bronchial Washing - Right Middle Lobe Laboratory Results 04/07/18 04:30 04/07/18 04:30 04/06/18 04/07/18 04/08/18 05:59 05:59 05:59 Intake Total 6 3260 Output Total 4200 175 1800 Balance -2094 3085 -1800 ICD10 Worksheet Patient Problems: Problems Problem Status Onset Influenza Acute Pneumonia Acute Septic shock Acute
[2018-04-07] MEDS: OSELTAMIVIR 6 MG/ML UDSYR PO SCH ×2 (09:28→18:21)
[2018-04-07] MEDS: ENOXAPARIN 40 MG/0.4 ML SYR SC SCH (09:28)
[2018-04-07] MEDS: SENNOSIDES/DOCUSATE SODIUM TAB PO SCH ×2 (09:29→19:43)
[2018-04-07] MEDS: FAMOTIDINE 20 MG TAB PO SCH ×2 (09:34→19:42)
--- NOTE | 2018-04-07 09:57 | HOSPPROG ---
Hospitalist Progress Note Assessment/Plan: #Septic shock: off pressors #AHRF: required intubation. Due to PNA, ARDS -IV CTX, prednisone #Influenza A complicated by Strep A PNA: narrow abx to CTX. s/p Tamiflu #Hypokalemia: repleting #CAD: prior stent. Plavix, statin #Metabolic acidosis: resolved #h/o TIA: Plavix #Deconditioning: PT #Diet: dysphagia #DVT ppx: Lovenox #Diet: regular #Disp: inpatient admission for IV abx, PT. Case d/w Dr. Parada Subjective: walking with PT Objective: Vital Signs Temp Pulse Resp BP Pulse Ox 37.2 C 84 22 H 158/79 H 95 04/07/18 07:55 04/07/18 07:55 04/07/18 07:55 04/07/18 07:55 04/07/18 07:55 Microbiology 04/03/18 23:15 Gram Stain - Final Bronchial Washing - Right Middle Lobe Bronchial Culture - Final Streptococcus Pyogenes Grp A Laboratory Results 04/07/18 04:30 04/07/18 04:30 04/06/18 04/07/18 04/08/18 05:59 05:59 05:59 Intake Total 2106 3260 Output Total 4200 175 1800 Balance -2094 3085 -1800 - Time Spent With Patient Time Spent with Patient: greater than 35 minutes Time Spent with Patient: Greater than 35 minutes spent on this patients care, greater than 50% of time spent counseling, educating, and coordinating care regarding the above mentioned plan. - Physical Exam Constitutional: not in pain, other (ill-appearing, fatigued) Ears, Nose, Mouth, Throat: moist mucous membranes Cardiovascular: regular rate and rhythym Respiratory: reduced air movement, inspiratory crackles Gastrointestinal: normoactive bowel sounds Skin: warm Musculoskeletal: generalized weakness Neurologic: AAOx3 ICD10 Worksheet Patient Problems: Problems Problem Status Onset Influenza Acute Septic shock Acute Pneumonia Acute
[2018-04-07] MEDS ORDERED: predniSONE 10 MG TAB PO ONE (10:46)
[2018-04-07] MEDS: FUROSEMIDE 20 MG/2 ML VIAL IVP SCH (12:32)
[2018-04-07] MEDS: CLOPIDOGREL BISULFATE 75 MG TAB PO SCH (12:34)
--- NOTE | 2018-04-07 15:26 | PDINTPN ---
News Assignment Editor Progress Note Assessment/Plan: ASSESSMENT 82-year-old previously healthy male admitted with post influenza pneumonia leading to acute hypoxemic respiratory failure, severe ARDS and septic shock. Patient continues to improve # acute hypoxemic resp failure. Required mechanical ventilation, paralysis improving. Extubated 03/29/2018 now on supplemental oxygen. Slowly improving. # septic shock, resolved. required 2 pressors plus steroids as well as fludrocortisone # ARDS, severe - initial PaO2:FiO2 <150 on high peep. Now resolved # influenza s/p tamiflu # strep pyogenes pneumonia, post influenza narrowed to CTX # leukopenia, resolved # ASA, resolved # coronary disease # advanced age # anemia - suspect dilutional plus blood draws. No overt bleeding, no e/o intravascular hemolysis # hypokalemia PLAN # vanc stopped 04/06/18 # Zosyn narrowed to CTX 04/05/18 to complete a total 5-7 day course of IV abx # s/p azithro 1.5 g total load to cover for atypical pathogens as well as pleotrophic effect in ARDS # hydrocortisone 50 mg IV Q6 started 04/04/18 stopped 04/06/18 # prednisone to complete 7 days of steroids for severe CAP and septic shock # continue lasix daily to help lung function # trend CBC, BMP # check ferritin, if low will give IV iron sucrose # hold Plavix # continue statin # Feeding - tube feeds # Analgesia APAP, fentanyl # Sedation none # Thromboprophylaxis - Lovenox # Head of bed elevated # Ulcer prophylaxis - H2 rosie # Glucose SSI # Skin no skin breakdown # Delirium - delirium precautions Patient is critical ill due to life threatening organ dysfunction and failure and is at high risk for decompensation and . Imaging Reviewed. 04/05/18 CXR with mild interval improvement in opacities. Support devices in appropriate position Total critical care time, excluding procedures: 65 min spent interviewing examining patient, bedside rounds, bedside titration of ventilator, reviewing imaging and labs as well as discussions with family 04/06/18 13:19 04/07/18 15:23 04/07/18 15:40 Subjective: Recurrent PT. Continues to improve. However after doing multiple laps around the unit had some desaturations requiring increasing oxygen. Steroids stopped yesterday morning. This may contribute to some of clinical worsening. Also large output with minimal Lasix suggest a component hypervolemia. No new fevers chills nausea vomiting or productive cough. No rashes, no syncope. Objective: Vital Signs Temp Pulse Resp BP Pulse Ox 36.9 C 87 32 H 104/61 95 04/07/18 12:00 04/07/18 12:00 04/07/18 12:00 04/07/18 12:00 04/07/18 12:38 Microbiology 04/03/18 23:15 Gram Stain - Final Bronchial Washing - Right Middle Lobe Bronchial Culture - Final Streptococcus Pyogenes Grp A Laboratory Results 04/07/18 04:30 04/07/18 13:00 04/06/18 04/07/18 04/08/18 05:59 05:59 05:59 Intake Total 2106 3260 Output Total 4200 175 1800 Balance -2094 3085 -1800 Physical Exam - Physical Exam General Appearance: alert, no apparent distress EENT: PERRL/EOMI, normal ENT inspection Neck: non-tender, full range of motion Respiratory: chest non-tender, lungs clear, normal breath sounds, No respiratory distress Cardiac/Chest: normal peripheral pulses, regular rate, rhythm Abdomen: normal bowel sounds, non-tender Skin: normal color, warm/dry Extremities: normal range of motion, non-tender Neuro/Psych: no motor/sensory deficits, alert, normal mood/affect, oriented x 3 ICD10 Worksheet Patient Problems: Problems Problem Status Onset Influenza Acute Pneumonia Acute Septic shock Acute
[2018-04-07] MEDS ORDERED: POTASSIUM CL 20 MEQ TAB PO ONE (15:39)
--- NOTE | 2018-04-07 17:29 | ASMTCMCOM ---
CM Note CM Note Notes: Chart review completed. Pt lives with in [place], previously independent, and was admitted for post influenza pneumonia and septic shock. Pt was recently extubated, now on supplemental oxygen and was receiving nutrition via feeding tube and is now rebuilding the ability to eat. OT and PT are both recommending homecare. Discharge date TBD. CM to follow. D/C Plan: TBD. Date Signed: 04/07/2018 05:29 PM Electronically Signed By:Jordyn Sr
[2018-04-07] MEDS: PRAVASTATIN SODIUM 40 MG TAB PO SCH (19:42)
[2018-04-08] MEDS: SENNOSIDES/DOCUSATE SODIUM TAB PO SCH ×2 (07:42→20:50)
[2018-04-08] MEDS: FUROSEMIDE 20 MG/2 ML VIAL IVP SCH (08:52)
[2018-04-08] MEDS: CLOPIDOGREL BISULFATE 75 MG TAB PO SCH (08:52)
[2018-04-08] MEDS: FAMOTIDINE 20 MG TAB PO SCH ×3 (08:52→21:41)
[2018-04-08] MEDS: predniSONE 20 MG TAB PO SCH (08:52)
[2018-04-08] MEDS: ENOXAPARIN 40 MG/0.4 ML SYR SC SCH (08:52)
[2018-04-08] MEDS: OSELTAMIVIR 6 MG/ML UDSYR PO SCH (08:52)
[2018-04-08] MEDS ORDERED: POTASSIUM CL 10 MEQ TAB PO ONE (10:33)
--- NOTE | 2018-04-08 14:14 | PDINTPN ---
Director Auto Progress Note Assessment/Plan: ASSESSMENT 82-year-old previously healthy male admitted with post influenza pneumonia leading to acute hypoxemic respiratory failure, severe ARDS and septic shock. Patient continues to improve # acute hypoxemic resp failure. Required mechanical ventilation, paralysis and proning. Extubated 04/06/2018 now on supplemental oxygen. Slowly improving. # septic shock, resolved. required 2 pressors plus steroids as well as fludrocortisone # ARDS, severe - initial PaO2:FiO2 <150 on high peep. Now resolved # influenza s/p tamiflu # strep pyogenes pneumonia, post influenza narrowed to CTX. Procalcitonin has decreased from nearly 20 to 2.6 suggestive of adequately treated infection # leukopenia, resolved # ASA, resolved # coronary disease # advanced age # anemia - suspect dilutional plus blood draws. No overt bleeding, no e/o intravascular hemolysis # hypokalemia PLAN # vanc stopped 04/06/18 # Zosyn narrowed to CTX 04/05/18 to complete a total 5-7 day course of IV abx # s/p azithro 1.5 g total load to cover for atypical pathogens as well as pleotrophic effect in ARDS # hydrocortisone 50 mg IV Q6 started 04/04/18 stopped 04/06/18 # prednisone to complete 7 days of steroids for severe CAP and septic shock # Lasix as needed goal even to slightly negative # trend CBC, BMP # Plavix # continue statin # Feeding - regular diet # Analgesia APAP, # Sedation none # Thromboprophylaxis - Lovenox # Head of bed elevated # Ulcer prophylaxis - not indicated # Glucose SSI # Skin no skin breakdown # Delirium - delirium precautions Imaging Personally reviewed interpreted radiographic images well as formal radiology reads 04/08/2018 CXR with persistent right-sided airspace opacities 04/08/18 14:15 04/08/18 14:16 Subjective: Continues to wean down oxygen. Was ambulating on 2-4 L nasal cannula doing well. Aspirated while drinking water this morning and transient required high- flow nasal cannula to maintain sats greater than 90%. Feeling short of breath after this but has improved throughout the morning. No new fevers chills or nausea vomiting. No headaches. Weak but improving Objective: Vital Signs Temp Pulse Resp BP Pulse Ox 37.1 C 87 36 H 104/54 L 99 04/08/18 12:00 04/08/18 12:00 04/08/18 12:00 04/08/18 12:00 04/08/18 12:00 Microbiology 04/03/18 23:15 Gram Stain - Final Bronchial Washing - Right Middle Lobe Bronchial Culture - Final Streptococcus Pyogenes Grp A Laboratory Results 04/08/18 06:15 04/08/18 06:15 04/07/18 04/08/18 04/09/18 05:59 05:59 05:59 Intake Total 3260 1960 1255 Output Total 175 2024 900 Balance 3085 -65 355 Physical Exam - Physical Exam General Appearance: alert, no apparent distress EENT: PERRL/EOMI, normal ENT inspection Neck: non-tender, full range of motion Respiratory: chest non-tender, other (Mild rhonchi left-sided lung field) Cardiac/Chest: normal peripheral pulses, regular rate, rhythm, No edema Abdomen: normal bowel sounds, non-tender Skin: normal color, warm/dry Extremities: non-tender, normal inspection, No pedal edema, No swelling Neuro/Psych: no motor/sensory deficits, alert, normal mood/affect, oriented x 3 ICD10 Worksheet Patient Problems: Problems Problem Status Onset Influenza Acute Pneumonia Acute Septic shock Acute
--- NOTE | 2018-04-08 14:35 | HOSPPROG ---
Hospitalist Progress Note Assessment/Plan: #Septic shock: off pressors #AHRF: required intubation. Due to PNA, ARDS -IV CTX, prednisone. Complete abx 04/09 -gentle diuresis #Leukocytosis: may be aspiration or pred. Afebrile. Monitor closely #Influenza A complicated by Strep A PNA: narrow abx to CTX. s/p Tamiflu #Hypokalemia: repleting #CAD: prior stent. Plavix, statin #Metabolic acidosis: resolved #h/o TIA: Plavix #Deconditioning: PT #Diet: dysphagia #DVT ppx: Lovenox #Diet: regular #Disp: inpatient admission for IV abx, PT. Case d/w Dr. Parada Subjective: tired. Breathing less labored today. Aspirated on water this morning Objective: Vital Signs Temp Pulse Resp BP Pulse Ox 37.1 C 87 36 H 104/54 L 99 04/08/18 12:00 04/08/18 12:00 04/08/18 12:00 04/08/18 12:00 04/08/18 12:00 Microbiology 04/03/18 23:15 Gram Stain - Final Bronchial Washing - Right Middle Lobe Bronchial Culture - Final Streptococcus Pyogenes Grp A Laboratory Results 04/08/18 06:15 04/08/18 06:15 04/07/18 04/08/18 04/09/18 05:59 05:59 05:59 Intake Total 3260 1960 1255 Output Total 175 2025 900 Balance 3085 -65 355 - Time Spent With Patient Time Spent with Patient: greater than 35 minutes Time Spent with Patient: Greater than 35 minutes spent on this patients care, greater than 50% of time spent counseling, educating, and coordinating care regarding the above mentioned plan. - Physical Exam Constitutional: no apparent distress, other (fatigued) Eyes: PERRL Ears, Nose, Mouth, Throat: moist mucous membranes Cardiovascular: No edema Respiratory: inspiratory crackles (right base) Gastrointestinal: normoactive bowel sounds Genitourinary: no bladder fullness, No weir in urethra Neurologic: CN II-XII Intact Psychiatric: interacting appropriately, flat affect ICD10 Worksheet Patient Problems: Problems Problem Status Onset Influenza Acute Pneumonia Acute Septic shock Acute
[2018-04-08] MEDS: PRAVASTATIN SODIUM 40 MG TAB PO SCH ×2 (20:50→21:41)
[2018-04-09] MEDS ORDERED: POTASSIUM CL 10 MEQ TAB PO ONE (08:13)
[2018-04-09] MEDS: CLOPIDOGREL BISULFATE 75 MG TAB PO SCH (08:49)
[2018-04-09] MEDS: ENOXAPARIN 40 MG/0.4 ML SYR SC SCH (08:50)
[2018-04-09] MEDS: FUROSEMIDE 20 MG/2 ML VIAL IVP SCH (08:50)
[2018-04-09] MEDS: predniSONE 20 MG TAB PO SCH (08:50)
[2018-04-09] MEDS: FAMOTIDINE 20 MG TAB PO SCH ×2 (08:50→21:02)
--- NOTE | 2018-04-09 09:01 | HOSPPROG ---
Hospitalist Progress Note Assessment/Plan: #Septic shock: off pressors #AHRF: required intubation. Due to PNA, ARDS -IV CTX, prednisone. Complete abx 04/09 -gentle diuresis #Leukocytosis: trending up today. May have been from aspiration or pred. Afebrile. #Influenza A complicated by Strep A PNA: narrow abx to CTX. s/p Tamiflu #Hypokalemia: repleted #CAD: prior stent. Plavix, statin #Metabolic acidosis: resolved #h/o TIA: Plavix #Deconditioning: PT #Diet: dysphagia #DVT ppx: Lovenox #Diet: regular #Disp: inpatient admission for IV abx, PT. Case d/w Dr. Galdamez Subjective: SOB improved this afternoon. Nonproductive cough Objective: Vital Signs Temp Pulse Resp BP Pulse Ox 36.6 C 75 19 109/54 L 92 04/09/18 07:51 04/09/18 07:51 04/09/18 07:51 04/09/18 07:51 04/09/18 07:51 Microbiology 04/03/18 17:32 Blood Culture - Final Blood 04/03/18 17:16 Blood Culture - Final Blood Laboratory Results 04/09/18 05:10 04/09/18 05:10 04/08/18 04/09/18 04/10/18 05:59 05:59 05:59 Intake Total 1959 1754 Output Total 2024 1580 Balance -65 175 - Time Spent With Patient Time Spent with Patient: greater than 35 minutes Time Spent with Patient: Greater than 35 minutes spent on this patients care, greater than 50% of time spent counseling, educating, and coordinating care regarding the above mentioned plan. - Physical Exam Constitutional: no apparent distress, other (sitting up in bed) Ears, Nose, Mouth, Throat: moist mucous membranes Cardiovascular: regular rate and rhythym, No edema Respiratory: no respiratory distress, clear to auscultation Gastrointestinal: normoactive bowel sounds Genitourinary: weir in urethra Skin: warm Musculoskeletal: generalized weakness Neurologic: AAOx3, CN II-XII Intact Psychiatric: interacting appropriately ICD10 Worksheet Patient Problems: Problems Problem Status Onset Influenza Acute Pneumonia Acute Septic shock Acute
[2018-04-09] MEDS: SENNOSIDES/DOCUSATE SODIUM TAB PO SCH ×2 (09:13→19:59)
--- NOTE | 2018-04-09 09:48 | PDINTPN ---
Digital Cartographer Progress Note Assessment/Plan: Assessment: 82-year-old previously healthy male admitted with post influenza pneumonia leading to acute hypoxemic respiratory failure, severe ARDS and septic shock. Patient continues to improve # acute hypoxemic resp failure. Required mechanical ventilation, paralysis and proning. Extubated 04/06/2018 now on supplemental oxygen. Slowly improving. # septic shock, resolved. required 2 pressors plus steroids as well as fludrocortisone # ARDS, severe - initial PaO2:FiO2 <150 on high peep. Now resolved # influenza: Completed Tamiflu # strep pyogenes pneumonia, post influenza narrowed to CTX. Procalcitonin has decreased from nearly 20 to 2.6 suggestive of adequately treated infection # leukopenia, resolved. Now WBC high and trending up. Afebrile. # ASA, resolved # coronary disease # advanced age # anemia - suspect dilutional plus blood draws. No overt bleeding, no e/o intravascular hemolysis # hypokalemia PLAN # vanc stopped 04/06/18 # Complete 7 days of IV antibiotics (currently CTX). # Lasix as needed goal even to slightly negative # trend CBC, BMP. Check CXR 04/10 # Plavix # continue statin # Feeding - regular diet # Analgesia APAP, # Sedation none # Thromboprophylaxis - Lovenox # Head of bed elevated # Ulcer prophylaxis - not indicated # Glucose SSI # Skin no skin breakdown # Delirium - No signs of significant delirium. Continue delirium precautions 04/09/18 11:17 Subjective: Feels OK, still feels quite weak, but improving. Fairly good appetite. Objective: Vital Signs Temp Pulse Resp BP Pulse Ox 36.6 C 75 24 H 109/54 L 96 04/09/18 07:51 04/09/18 07:51 04/09/18 08:15 04/09/18 07:51 04/09/18 08:15 Microbiology 04/03/18 17:32 Blood Culture - Final Blood 04/03/18 17:16 Blood Culture - Final Blood Laboratory Results 04/09/18 05:10 04/09/18 05:10 04/08/18 04/09/18 04/10/18 05:59 05:59 05:59 Intake Total 1959 1755 Output Total 2024 1580 Balance -65 175 Physical Exam - Physical Exam General Appearance: alert, no apparent distress EENT: normal ENT inspection Neck: normal inspection Respiratory: lungs clear, normal breath sounds Cardiac/Chest: normal peripheral pulses, regular rate, rhythm Abdomen: non-tender, No soft Skin: normal color, warm/dry Extremities: non-tender, normal inspection Neuro/Psych: alert, normal mood/affect, oriented x 3 ICD10 Worksheet Patient Problems: Problems Problem Status Onset Influenza Acute Pneumonia Acute Septic shock Acute
--- NOTE | 2018-04-09 14:43 | ASMTCMCOM ---
CM Note CM Note Notes: Therapies report patient seems weaker having O2 issues, may need In-pt Rehab. Date Signed: 04/09/2018 02:43 PM Electronically Signed By:Padma Fletcher LCSW
[2018-04-09] MEDS ORDERED: CARBOXYMETHYLCELLULOSE 1% 0.4 ML DROPERETTE ONE (20:59)
[2018-04-09] MEDS: PRAVASTATIN SODIUM 40 MG TAB PO SCH (21:02)
[2018-04-10] MEDS: FUROSEMIDE 20 MG/2 ML VIAL IVP SCH (09:19)
[2018-04-10] MEDS: ENOXAPARIN 40 MG/0.4 ML SYR SC SCH (09:19)
[2018-04-10] MEDS: SENNOSIDES/DOCUSATE SODIUM TAB PO SCH ×2 (09:19→20:01)
[2018-04-10] MEDS: FAMOTIDINE 20 MG TAB PO SCH ×2 (09:19→21:05)
[2018-04-10] MEDS: CLOPIDOGREL BISULFATE 75 MG TAB PO SCH (09:19)
--- NOTE | 2018-04-10 12:10 | HOSPPROG ---
Hospitalist Progress Note Assessment/Plan: #Septic shock: off pressors #AHRF: required intubation. Due to PNA, ARDS. Stable on nasal cannula tday -Completed abx 04/09 -gentle diuresis; change to PO #Leukocytosis: trending down today. May have been from aspiration or pred. Afebrile. #Influenza A complicated by Strep A PNA: narrow abx to CTX. s/p Tamiflu #Hypokalemia: repleted #CAD: prior stent. Plavix, statin #Metabolic acidosis: resolved #h/o TIA: Plavix #Deconditioning: PT #Diet: dysphagia #DVT ppx: Lovenox #Diet: regular #Disp: inpatient admission for IV abx, PT. Case d/w Dr. 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 04/03/18 17:32 Blood Culture - Final Blood 04/03/18 17:16 Blood Culture - Final Blood Laboratory Results 04/10/18 05:45 04/10/18 05:45 04/09/18 04/10/18 04/11/18 05:59 05:59 05:59 Intake Total 1755 853 Output Total 1580 1950 Balance 175 -1097 - Physical Exam Constitutional: other (thin) Eyes: PERRL Ears, Nose, Mouth, Throat: moist mucous membranes Cardiovascular: regular rate and rhythym, No edema (no LE edema) Respiratory: other (decreased breath sounds right lung) Genitourinary: weir in urethra (condom catheter) Skin: warm Musculoskeletal: generalized weakness Neurologic: CN II-XII Intact ICD10 Worksheet Patient Problems: Problems Problem Status Onset Influenza Acute Pneumonia Acute Septic shock Acute
--- NOTE | 2018-04-10 12:36 | PDINTPN ---
[employer] Progress Note Assessment/Plan: Assessment: 82-year-old previously healthy male admitted with post influenza pneumonia leading to acute hypoxemic respiratory failure, severe ARDS and septic shock. Patient continues to improve # acute hypoxemic resp failure. Required mechanical ventilation, paralysis and proning. Extubated 04/06/2018 now on supplemental oxygen. CXR and oxygen needs improving. Now on supplemental oxygen at 2 liters/minute, although O2 needs transiently increased/fluctuated over the last few days. # septic shock, resolved. required 2 pressors plus steroids as well as fludrocortisone. Now off with normal BP. # ARDS, severe - initial PaO2:FiO2 <150 on high peep. Now resolved # influenza: Completed Tamiflu # strep pyogenes pneumonia, post influenza narrowed to CTX. Procalcitonin has decreased from nearly 20 to 0.8 suggestive of adequately treated infection # leukopenia, resolved. Now WBC high and trending up. Afebrile. # ASA, resolved # coronary disease # advanced age # anemia - suspect dilutional plus blood draws. No overt bleeding, no e/o intravascular hemolysis # hypokalemia PLAN # vanc stopped 04/06/18 # Completed 7 days of IV antibiotics. # Continue daily Lasix. # trend CBC, BMP. # Plavix # continue statin # Feeding - regular diet # Analgesia APAP, # Thromboprophylaxis - Lovenox # Head of bed elevated # Add Guaifenesin to help with secretions. # Ulcer prophylaxis - not indicated # Glucose SSI # Skin no skin breakdown # Delirium - No signs of significant delirium. Continue delirium precautions 04/10/18 12:34 04/10/18 12:36 Subjective: Feels better, slept well last night. Appetite improved. Still has some cough with sputum. Objective: Vital Signs Temp Pulse Resp BP Pulse Ox 36.3 C 91 23 H 93/61 L 96 04/10/18 11:46 04/10/18 11:46 04/10/18 11:46 04/10/18 11:46 04/10/18 11:46 Microbiology 04/03/18 23:15 Mycobacterial Smear (TIFFANY) - Final Bronchial Alveolar Lavage - Bilateral Lobes Mycobacterium tuberculosis DNA ( PCR - Final Pcr Negative For M. Tb Complex 04/03/18 17:32 Blood Culture - Final Blood 04/03/18 17:16 Blood Culture - Final Blood Laboratory Results 04/10/18 05:45 04/10/18 05:45 04/09/18 04/10/18 04/11/18 05:59 05:59 05:59 Intake Total 1754 853 Output Total 4550 1950 Balance 175 -1097 Chest x-ray: Improved right-sided infiltrate. Images reviewed by wa Microbiology 04/03/18 23:15 Bronchial Washing - Right Middle Lobe Gram Stain - Final 04/03/18 23:15 Bronchial Washing - Right Middle Lobe Bronchial Culture - Final Streptococcus Pyogenes Grp A 04/03/18 23:15 Bronchial Alveolar Lavage - Bilateral Lobes Mycobacterial Smear (TIFFANY) - Final 04/03/18 23:15 Bronchial Alveolar Lavage - Bilateral Lobes Mycobacterium tuberculosis DNA (PCR - Final Pcr Negative For M. Tb Complex 04/03/18 23:15 Bronchial Alveolar Lavage - Bilateral Lobes Mycobacterial Culture - Preliminary Physical Exam - Physical Exam General Appearance: alert, no apparent distress EENT: normal ENT inspection Neck: normal inspection Respiratory: crackles (right) Cardiac/Chest: regular rate, rhythm, edema Abdomen: normal bowel sounds, non-tender Skin: normal color, warm/dry Extremities: normal inspection Neuro/Psych: alert, normal mood/affect, oriented x 3 ICD10 Worksheet Patient Problems: Problems Problem Status Onset Influenza Acute Pneumonia Acute Septic shock Acute
[2018-04-10] MEDS: guaiFENesin 600 MG TAB.ER PO SCH ×2 (15:09→21:05)
[2018-04-10] MEDS: NYSTATIN SUSP 500000 UNIT/5 ML UD LIQ PO SCH ×2 (16:00→21:05)
[2018-04-10] MEDS: PRAVASTATIN SODIUM 40 MG TAB PO SCH (21:04)
[2018-04-11] MEDS: guaiFENesin 600 MG TAB.ER PO SCH ×2 (09:49→20:51)
[2018-04-11] MEDS: FUROSEMIDE 20 MG TAB PO SCH ×2 (09:49→10:01)
[2018-04-11] MEDS: CLOPIDOGREL BISULFATE 75 MG TAB PO SCH (09:49)
[2018-04-11] MEDS: FAMOTIDINE 20 MG TAB PO SCH ×2 (09:49→20:50)
[2018-04-11] MEDS: ENOXAPARIN 40 MG/0.4 ML SYR SC SCH (09:50)
[2018-04-11] MEDS: SENNOSIDES/DOCUSATE SODIUM TAB PO SCH ×2 (10:00→20:47)
--- NOTE | 2018-04-11 10:09 | HOSPPROG ---
Hospitalist Progress Note Assessment/Plan: #Septic shock: off pressors #AHRF: required intubation. Due to PNA, ARDS. Now down to 1L #Leukocytosis: continues to trend down. May have been from aspiration or pred. Afebrile. #Influenza A complicated by Strep A PNA: narrow abx to CTX. s/p Tamiflu #Hypokalemia: repleted #CAD: prior stent. Plavix, statin #Metabolic acidosis: resolved #h/o TIA: Plavix #Deconditioning: walking the unit more #Diet: dysphagia #DVT ppx: Lovenox #Diet: regular #Disp: inpatient admission PT. Hope to DC in next few days. Family at bedside, questions answered Subjective: walked unit this morning with less SOB Objective: Vital Signs Temp Pulse Resp BP Pulse Ox 37.1 C 79 20 110/62 97 04/10/18 20:00 04/11/18 04:00 04/11/18 04:00 04/10/18 20:00 04/11/18 04:00 Microbiology 04/03/18 23:15 Mycobacterial Smear (TIFFANY) - Final Bronchial Alveolar Lavage - Bilateral Lobes Mycobacterium tuberculosis DNA ( PCR - Final Pcr Negative For M. Tb Complex Laboratory Results 04/11/18 06:16 04/11/18 06:16 04/10/18 04/11/18 04/12/18 05:59 05:59 05:59 Intake Total 853 1050 Output Total 1950 2350 Balance -1097 -1300 - Time Spent With Patient Time Spent with Patient: greater than 35 minutes Time Spent with Patient: Greater than 35 minutes spent on this patients care, greater than 50% of time spent counseling, educating, and coordinating care regarding the above mentioned plan. - Physical Exam Constitutional: no apparent distress Ears, Nose, Mouth, Throat: moist mucous membranes Cardiovascular: regular rate and rhythym Respiratory: other (few cracckles right base) Gastrointestinal: normoactive bowel sounds, soft, non-tender abdomen Genitourinary: other (condom catheter) Skin: warm Musculoskeletal: full muscle strength Neurologic: AAOx3, CN II-XII Intact Psychiatric: interacting appropriately ICD10 Worksheet Patient Problems: Problems Problem Status Onset Influenza Acute Pneumonia Acute Septic shock Acute
[2018-04-11] MEDS: NYSTATIN SUSP 500000 UNIT/5 ML UD LIQ PO SCH ×6 (11:09→21:15)
--- NOTE | 2018-04-11 15:21 | ASMTCMCOM ---
CM Note CM Note Notes: Spoke with patient, his and his daughter.Patient is not eligible for inpatient rehab. Therapies are recommending home with home care. Patient is planning on driving back to [place] but the family is wondering if he should remain here and do some rehab here before going. Encouraged them to ask both PT and the Dr. what they think is best for the patient. CM will assist the family if he pursues services here. If patient returns to [place], they were advised they can set up home health care through their PCP in [place] or they can set up outpatient physical therapy through their PCP. CM will follow. Date Signed: 04/11/2018 03:20 PM Electronically Signed By:Sandi Courtney LCSW
--- NOTE | 2018-04-11 16:12 | PDINTPN ---
[employer] Progress Note Assessment/Plan: Assessment: 82-year-old previously healthy male admitted with post influenza pneumonia leading to acute hypoxemic respiratory failure, severe ARDS and septic shock. Patient continues to improve # acute hypoxemic resp failure. Required mechanical ventilation, paralysis and proning. Extubated 04/06/2018 now on supplemental oxygen. CXR and oxygen needs improving. Now on supplemental oxygen at 2 liters/minute, although O2 needs transiently increased/fluctuated over the last few days. # septic shock, resolved. required 2 pressors plus steroids as well as fludrocortisone. Now off with normal BP. # ARDS, severe - initial PaO2:FiO2 <150 on high peep. Now resolved # influenza: Completed Tamiflu # strep pyogenes pneumonia, post influenza narrowed to CTX. Procalcitonin has decreased from nearly 20 to 0.8 suggestive of adequately treated infection # leukopenia, resolved. Now WBC high and trending down. Afebrile. # ASA, resolved # coronary disease # advanced age # anemia - suspect dilutional plus blood draws. No overt bleeding, no e/o intravascular hemolysis # hypokalemia PLAN # vanc stopped 04/06/18 # Completed 7 days of IV antibiotics. # Stop Lasix # trend CBC, BMP. # Plavix # continue statin # Feeding - regular diet # Analgesia APAP, # Thromboprophylaxis - Lovenox # Head of bed elevated # Add Guaifenesin to help with secretions. # Ulcer prophylaxis - not indicated # Glucose SSI # Skin no skin breakdown # Delirium - No signs of significant delirium. Continue delirium precautions # Transfer to floor 04/11/18 16:13 Subjective: Feels better, strength improved. Minimal residual cough. Good appetite. Objective: Vital Signs Temp Pulse Resp BP Pulse Ox 37.1 C 78 18 109/59 L 95 04/10/18 20:00 04/11/18 08:00 04/11/18 08:00 04/11/18 08:00 04/11/18 08:00 Microbiology 04/03/18 23:15 Mycobacterial Smear (TIFFANY) - Final Bronchial Alveolar Lavage - Bilateral Lobes Mycobacterium tuberculosis DNA ( PCR - Final Pcr Negative For M. Tb Complex Laboratory Results 04/11/18 06:16 04/11/18 06:16 04/10/18 04/11/18 04/12/18 05:59 05:59 05:59 Intake Total 853 1050 Output Total 1950 2350 [facility] -[id number] [id number] -211 Physical Exam - Physical Exam General Appearance: alert, no apparent distress EENT: normal ENT inspection Neck: normal inspection Respiratory: lungs clear, normal breath sounds Cardiac/Chest: regular rate, rhythm, No edema Abdomen: normal bowel sounds, non-tender, soft Skin: normal color, warm/dry Extremities: normal inspection Neuro/Psych: alert, normal mood/affect, oriented x 3 ICD10 Worksheet Patient Problems: Problems Problem Status Onset Influenza Acute Pneumonia Acute Septic shock Acute
[2018-04-11] MEDS: PRAVASTATIN SODIUM 40 MG TAB PO SCH (20:50)
[2018-04-12] MEDS: guaiFENesin 600 MG TAB.ER PO SCH ×2 (09:37→20:53)
[2018-04-12] MEDS: FAMOTIDINE 20 MG TAB PO SCH ×2 (09:38→20:54)
[2018-04-12] MEDS: ENOXAPARIN 40 MG/0.4 ML SYR SC SCH (09:38)
[2018-04-12] MEDS: CLOPIDOGREL BISULFATE 75 MG TAB PO SCH (09:38)
[2018-04-12] MEDS: NYSTATIN SUSP 500000 UNIT/5 ML UD LIQ PO SCH ×4 (09:43→20:53)
[2018-04-12] MEDS: SENNOSIDES/DOCUSATE SODIUM TAB PO SCH ×2 (09:44→20:53)
--- NOTE | 2018-04-12 12:07 | ASMTCMCOM ---
CM Note CM Note Notes: , RN, and CM met with pt and family. PT/OT cleared pt for home, MD putting in order for [employer] to clear diet from dysphagia. Plan to dc tomorrow w/support of family and then they will drive back to [place]. CM available for any changes. DC Plan: Independent Date Signed: 04/12/2018 12:06 PM Electronically Signed By:Svitlana Raphael RN
--- NOTE | 2018-04-12 14:38 | HOSPPROG ---
Hospitalist Progress Note Assessment/Plan: #Septic shock: off pressors #AHRF: required intubation. Due to PNA, ARDS. Now down to 1L #Leukocytosis: continues to trend down. May have been from aspiration or pred. Afebrile. #Influenza A complicated by Strep A PNA: narrow abx to CTX. s/p Tamiflu #Hypokalemia: repleted #CAD: prior stent. Plavix, statin #Metabolic acidosis: resolved #h/o TIA: Plavix #Deconditioning: walking the unit more #Diet: regular #DVT ppx: Lovenox #Diet: regular #Disp: inpatient admission PT. -DC tomorrow aft PT assesses for stairs to ensure safe. Family plans on driving him home to [place]. Outpatient Occupational Therapy Subjective: working with PT, appetite improved Objective: Vital Signs Temp Pulse Resp BP Pulse Ox 36.6 C 81 16 98/53 L 96 04/12/18 09:59 04/12/18 09:59 04/12/18 09:59 04/12/18 09:59 04/12/18 09:59 Laboratory Results 04/11/18 06:16 04/11/18 06:16 04/11/18 04/12/18 04/13/18 05:59 05:59 05:59 Intake Total 1050 250 Output Total 2350 0 Balance -1300 -1800 - Time Spent With Patient Time Spent with Patient: greater than 35 minutes Time Spent with Patient: Greater than 35 minutes spent on this patients care, greater than 50% of time spent counseling, educating, and coordinating care regarding the above mentioned plan. - Physical Exam Constitutional: no apparent distress Eyes: PERRL Ears, Nose, Mouth, Throat: moist mucous membranes Cardiovascular: regular rate and rhythym, No edema Respiratory: no respiratory distress Gastrointestinal: normoactive bowel sounds Genitourinary: no bladder fullness Skin: warm Musculoskeletal: full muscle strength Neurologic: AAOx3, CN II-XII Intact Psychiatric: interacting appropriately ICD10 Worksheet Patient Problems: Problems Problem Status Onset Influenza Acute Pneumonia Acute Septic shock Acute
[2018-04-12] MEDS: PRAVASTATIN SODIUM 40 MG TAB PO SCH (20:54)
[2018-04-13 07:38] VITALS: BP 112/62
[2018-04-13] MEDS: FAMOTIDINE 20 MG TAB PO SCH (09:06)
[2018-04-13] MEDS: guaiFENesin 600 MG TAB.ER PO SCH (09:06)
[2018-04-13] MEDS: NYSTATIN SUSP 500000 UNIT/5 ML UD LIQ PO SCH ×2 (09:06→11:31)
[2018-04-13] MEDS: CLOPIDOGREL BISULFATE 75 MG TAB PO SCH (09:06)
[2018-04-13] MEDS: ENOXAPARIN 40 MG/0.4 ML SYR SC SCH (09:08)
[2018-04-13] MEDS: SENNOSIDES/DOCUSATE SODIUM TAB PO SCH (09:09)
--- NOTE | 2018-04-13 10:41 | HOSPPROG ---
Hospitalist Progress Note Assessment/Plan: Johnny Peres is a 82 y/o male who presented to the emergency room w 4-5 days of general malaise, fevers, chills and a non-productive cough. He tested positive for influenza, did not receive tamiflu/anti-viral d/t the onset of his symptoms. He was discharged with Zofran, Tylenol, and Ibuprofen and instructed to come back to the emergency room should his condition worsen. He presented with progressive weakness and dehydration. He is so weak, he fell and hit his right eye/eyebrow on the rim of the toilet seat. I reviewed his care w Dr Poole yesterday, plan is for dc and f/u with PCP #Septic shock: off pressors #AHRF: required intubation. Due to PNA, ARDS. Now down to 1L -on room air today #thrush -nystatin #Leukocytosis: continues to trend down. May have been from aspiration or pred. Afebrile. #Influenza A complicated by Strep A PNA: narrow abx to CTX. s/p Tamiflu #Hypokalemia: repleted #CAD: prior stent. Plavix, statin #Metabolic acidosis: resolved #h/o TIA: Plavix #Deconditioning: walking the unit more #Diet: regular #DVT ppx: Lovenox #Diet: regular #Disp: Subjective: Johnny said he is feeling well, anxious to be dc. Objective: Vital Signs Temp Pulse Resp BP Pulse Ox 36.8 C 77 14 112/62 92 04/13/18 07:38 04/13/18 07:38 04/13/18 07:38 04/13/18 07:38 04/13/18 07:38 Laboratory Results 04/13/18 05:00 04/11/18 06:16 04/12/18 04/13/18 04/14/18 05:59 05:59 05:59 Intake Total 250 500 Output Total 2050 300 Balance -1800 200 - Physical Exam Constitutional: no apparent distress, appears nourished, other (slender) Eyes: PERRL Ears, Nose, Mouth, Throat: hearing normal Cardiovascular: regular rate and rhythym, no murmur, rub, or gallop Respiratory: no respiratory distress, clear to auscultation Skin: warm Neurologic: AAOx3 Psychiatric: interacting appropriately ICD10 Worksheet Patient Problems: Problems Problem Status Onset Influenza Acute Pneumonia Acute Septic shock Acute
--- NOTE | 2018-04-13 13:06 | GDS ---
DISCHARGE DIAGNOSES: 1. Septic shock. 2. Acute hypoxemic respiratory failure. 3. Thrush. 4. Leukocytosis. 5. Influenza A, complicated by Streptococcus A pneumoniae. 6. Hypokalemia. 7. Coronary artery disease. 8. Metabolic acidosis. 9. History of transient ischemic attack. 10. Deconditioning. CONSULTATION: Ricardo Paraad. HISTORY: Briefly, the patient is an 82-year-old gentleman who presented to the emergency room with 4-5 days of general malaise, fevers, chills, and a nonproductive cough. Prior to this admission, he tested positive for flu and did not receive Tamiflu due to the onset of his symptoms. He was subsequently discharged with Zofran, Tylenol, and ibuprofen and instructed to come to the ER if his condition worsened. It did worsen, and he had increased weakness causing him to fall. He had a chest x-ray performed, which showed a right- sided pulmonary infiltrate. He was admitted with septic shock, pneumonia and influenza. He was treated with supportive care in the intensive care unit. He had a bronchoscopy performed due to ongoing ARDS. In addition, a PICC line was placed. He improved throughout his stay. Today, he is on room air, feeling quite well, and will be discharged home with his family. HOSPITAL COURSE: 1. Septic shock. He was on pressors in the intensive care unit. Resolved. 2. Acute hypoxemic respiratory failure. He required intubation due to pneumonia and ARDS. He is on room air at discharge. 3. Thrush. Will continue nystatin. 4. Leukocytosis. His white blood cell count is trending down. 5. Influenza A, complicated by strep A pneumonia. He was treated with ceftriaxone and Tamiflu. Recommendation is for him to get a followup chest x- ray in 6 weeks. 6. Hypokalemia, stable. 7. Coronary artery disease, stable. He has a history of a stent placement. He is on Plavix and statin therapy. 8. Metabolic acidosis, resolved. 9. History of TIA, on Plavix. 10. Deconditioning. Worked with Physical Therapy and Occupational Therapy. DISCHARGE CONDITION: Stable. Blood pressure is 112/62, heart rate of 77, respiratory rate of 14, O2 saturation on room air 92%, temperature 36.8 Celsius. DISCHARGE MEDICATIONS: Please see the EMR. DISCHARGE INSTRUCTIONS: 1. To follow up with his primary care provider. 2. If he develops fever, chills, chest pain or shortness of breath, return to the ER. 3. Greater than 30 minutes discharging and coordinating the patient's care. /[id number]/MODL MTDD
== END 2018-04-13 11:45 | disposition home or self-care (01) | DRG 871 ==
LOC: F2N 20:05 → F3E 04-12 09:04
PROVIDERS: ADMIT Internal Medicine; ATTEND Internal Medicine
PROC: 02HV33Z Insertion of Infusion Device into Superior Vena Cava, Percutaneous Approach (ICD-10-PCS; principal; 2018-04-03)
PROC: 0BH17EZ Insertion of Endotracheal Airway into Trachea, Via Natural or Artificial Opening (ICD-10-PCS; 2018-04-03)
PROC: 5A1945Z Respiratory Ventilation, 24-96 Consecutive Hours (ICD-10-PCS; 2018-04-03)
PROC: 0B9D7ZX Drainage of Right Middle Lung Lobe, Via Natural or Artificial Opening, Diagnostic (ICD-10-PCS; 2018-04-03)
PROC: 0DH67UZ Insertion of Feeding Device into Stomach, Via Natural or Artificial Opening (ICD-10-PCS; 2018-04-05)
PROC: 3E0G76Z Introduction of Nutritional Substance into Upper GI, Via Natural or Artificial Opening (ICD-10-PCS; 2018-04-05)
DX: A41.89 Other specified sepsis (principal); R65.21 Severe sepsis with septic shock; E87.2 Acidosis; J10.08 Influenza due to other identified influenza virus with other specified pneumonia; J13 Pneumonia due to Streptococcus pneumoniae; J96.01 Acute respiratory failure with hypoxia; J80 Acute respiratory distress syndrome; B37.0 Candidal stomatitis; N17.9 Acute kidney failure, unspecified; E87.6 Hypokalemia; I25.10 Atherosclerotic heart disease of native coronary artery without angina pectoris; E87.70 Fluid overload, unspecified; D64.9 Anemia, unspecified; Z86.73 Personal history of transient ischemic attack (TIA), and cerebral infarction without residual deficits; Z95.5 Presence of coronary angioplasty implant and graft; Z79.02 Long term (current) use of antithrombotics/antiplatelets
CPT/HCPCS: 84484-PO; 92526-GN; 92610-GN; 97110-GP; 97112-GP; 97116-GP; 97161-GP; 97166-GO; 97530-GO; 97530-GP; 97535-GO; C1751; G8978-GP-CJ; G8979-GP-CI; G8987-GO-CL; G8988-GO-CI; G8996-GN-CI; G8997-GN-CH; J0456; J0610; J0696; J1644; J1650; J1720; J1940; J1956; J2250; J2543; J2704; J2997; J3010; J3370; J3480; J7512; P9041

== ENCOUNTER 2018-04-14 13:46 | Inpatient (IN) | payer OTHER ==
[2018-04-14] MEDS ORDERED: ONDANSETRON 4 MG/2 ML VIAL ONE (14:00)
[2018-04-14] MEDS ORDERED: ONDANSETRON 4 MG/2 ML VIAL IVP ONE (14:08)
[2018-04-14] MEDS ORDERED: NS 1,000 ML IV ONE (14:08)
--- NOTE | 2018-04-14 14:15 | EDPHY ---
H & P Time Seen by Provider: 04/14/18 13:54 HPI/ROS: Chief complaint. Vomiting, shaking HPI. Patient is an 82-year-old male visiting from [place] with vomiting that began today as well as shaking. Patient was admitted April 02 after 4 day history of flu symptoms. Testing showed flu A. He was discharged yesterday after 10 days in the hospital. He had sepsis ARDS. The patient was in the ICU and had bronchoscopy as well. Patient tells me is decrease cough. He notes slight shortness of breath. Family has a pulse ox at home that has been normal. No diarrhea and did have a normal bowel movement today. Slight abdominal pain that he says he feels muscular from vomiting. No chest discomfort. No urinary symptoms other than decreased urination after the vomiting began today ROS 10 systems were reviewed and negative with the exception of the elements mentioned in the history of present illness Past Medical/Surgical History: Past medical history is significant for recent sepsis, cardiac stent, cholecystectomy, TIA Social History: , nonsmoker, no alcohol Smoking Status: Never smoked Physical Exam: General Appearance: Alert well-developed male moderate distress vital signs show the patient be afebrile. Heart rate 106. Blood pressure 99/76 Eyes: Pupils equal and round no pallor or injection. ENT, pharynx without injection. Mucous membranes are dry Respiratory: There are no retractions, lungs are clear to auscultation. Cardiovascular: Regular rate and rhythm. Gastrointestinal: Abdomen is soft and nontender, no masses, bowel sounds normal. Neurological: Awake and alert, sensory and motor exams grossly normal. Skin: Warm and dry, no rashes. Musculoskeletal: Neck is supple nontender. Extremities symmetrical, full range of motion. Psychiatric: Patient is oriented X 3, there is no agitation. Constitutional: Initial Vital Signs Temperature (C) 36.3 C 04/14/18 13:49 Heart Rate 106 H 04/14/18 13:49 Respiratory Rate 19 04/14/18 13:49 Blood Pressure 99/76 L 04/14/18 13:49 O2 Sat (%) 94 04/14/18 13:49 O2 Delivery Mode Nasal Cannula O2 (L/minute) 2 Allergies/Adverse Reactions: codeine Allergy (Verified 04/14/18 13:48) Home Medications: Medication Instructions Recorded Albuterol [Ventolin Hfa Inhaler] 2 puffs IH QID PRN #1 mdi 04/02/18 Cholecalciferol (Vitamin D3) 2,000 unit PO HS 04/03/18 [Vitamin D3] Clopidogrel Bisulfate [Clopidogrel] 75 mg PO DAILY 04/03/18 Omeprazole 40 mg PO DAILY 04/03/18 Pravastatin Sodium 40 mg PO HS 04/03/18 guaiFENesin [Mucinex 600 MG (*)] 1,200 mg PO BID tab.er 04/12/18 Nystatin Susp [Mycostatin Oral 5 ml MM TID #125 ml 04/13/18 Liquid] Medical Decision Making - Diagnostics EKG Interpretation: EKG interpreted by me shows sinus tachycardia normal interval and axis. QRS is normal there is no significant ST elevation or depression. No arrhythmia. The rate is 102 Imaging Results: Chest x-ray shows resolving right-sided pneumonia though still present Procedures: IV normal saline. Sepsis workup. Lactate is 2.8. Severe sepsis declared at 2:20 p.m. Patient will have 30 milliliter/kilogram fluid bolus. Zofran for nausea. ED Course/Re-evaluation: Serial evaluations patient appears ill but stable. Current blood pressure 113 over 81. Heart rate 93 after about 1 L of fluid. Rocephin IV I consulted discussed the case with Dr. Kevin Kovacs, hospitalist, who agrees to the admission. Patient has fairly stable blood pressure and 92-94% saturation on room air. We will place him in Step-Down Unit Differential Diagnosis: Patient discharged yesterday after 10 day hospitalization for influenza pneumonia. Returns today with vomiting. His lactate is elevated. He has severe sepsis. Patient is cultured and given antibiotics. Critical Care Time: Critical care time exclusive procedures 40 min - Data Points Laboratory Results: Laboratory Results 04/14/18 14:06 04/14/18 14:06 04/14/18 04/14/18 04/14/18 14:15 14:06 14:06 WBC RBC Hgb Hct MCV MCH MCHC RDW Plt Count MPV Neut % (Auto) Lymph % (Auto) Waldo % (Auto) Eos % (Auto) Baso % (Auto) Nucleat RBC Rel Count Absolute Neuts (auto) Absolute Lymphs (auto) Absolute Monos (auto) Absolute Eos (auto) Absolute Basos (auto) Absolute Nucleated RBC Immature Gran % Immature Gran # Platelet Estimate PT INR APTT VBG Lactic Acid Sodium 139 mEq/L mEq/L (135-145) Potassium 4.7 mEq/L mEq/L (3.5-5.2) Chloride 107 mEq/L mEq/L (97-110) Carbon Dioxide 21 mEq/l L mEq/l (22-31) Anion Gap 11 mEq/L mEq/L (6-14) BUN 40 mg/dL H mg/dL (7-23) Creatinine 1.4 mg/dL H mg/dL (0.7-1.3) Estimated GFR 49 Glucose 198 mg/dL H mg/dL (70-100) Calcium 9.5 mg/dL mg/dL (8.5-10.4) Total Bilirubin 1.1 mg/dL mg/dL (0.1-1.4) POC Troponin I 0.01 ng/mL ng/mL (0.00-0.08) Procalcitonin Pending 04/14/18 04/14/18 04/14/18 14:06 14:06 14:05 WBC 38.79 10^3/uL H 10^3/uL (3.80-9.50) RBC 4.31 10^6/uL L 10^6/uL (4.40-6.38) Hgb 13.3 g/dL L g/dL (13.7-17.5) Hct 41.6 % % (40.0-51.0) MCV 96.5 fL fL (81.5-99.8) MCH 30.9 pg pg (27.9-34.1) MCHC 32.0 g/dL L g/dL (32.4-36.7) RDW 14.0 % % (11.5-15.2) Plt Count 765 10^3/uL H 10^3/uL (150-400) MPV 10.5 fL fL (8.7-11.7) Neut % (Auto) Pending Lymph % (Auto) Pending Waldo % (Auto) Pending Eos % (Auto) Pending Baso % (Auto) Pending Nucleat RBC Rel Count Pending Absolute Neuts (auto) Pending Absolute Lymphs (auto) Pending Absolute Monos (auto) Pending Absolute Eos (auto) Pending Absolute Basos (auto) Pending Absolute Nucleated RBC Pending Immature Gran % Pending Immature Gran # Pending Platelet Estimate Pending PT 14.2 SEC SEC (12.0-15.0) INR 1.08 (0.83-1.16) APTT 26.8 SEC SEC (23.0-38.0) VBG Lactic Acid 2.8 mmol/L H mmol/L (0.7-2.1) Sodium Potassium Chloride Carbon Dioxide Anion Gap BUN Creatinine Estimated GFR Glucose Calcium Total Bilirubin POC Troponin I Procalcitonin Medications Given: Sodium Chloride (Ns) 2,000 mls @ 4,000 mls/hr 30 ml/kg infuse over 30 min ( 2000 ml) IV EDNOW ONE PRN Reason: Protocol Stop: 04/14/18 14:48 Last Admin: 04/14/18 14:23 Dose: 2,000 mls Ceftriaxone Sodium/Dextrose (Rocephin 1 Gm (Premix)) 50 mls @ 100 mls/hr IV EDNOW ONE PRN Reason: Protocol Stop: 04/14/18 15:01 Last Admin: 04/14/18 14:41 Dose: 50 mls Discontinued Medications Sodium Chloride (Ns) 1,000 mls @ 0 mls/hr IV EDNOW ONE; Wide Open PRN Reason: Protocol Stop: 04/14/18 14:09 Last Admin: 04/14/18 14:10 Dose: 1,000 mls Ondansetron HCl (Zofran) 4 mg IVP EDNOW ONE Stop: 04/14/18 14:09 Last Admin: 04/14/18 14:17 Dose: 4 mg Point of Care Test Results: Chemistry 04/14/18 14:15 POC Troponin I 0.01 ng/mL ng/mL (0.00-0.08) Departure - Departure Disposition: [facility] Inpatient Acute Clinical Impression: Severe sepsis Pneumonia Qualifiers: Pneumonia type: due to unspecified organism Laterality: right Lung location: upper lobe of lung Qualified Code(s): J18.1 - Lobar pneumonia, unspecified organism Condition: Fair Referrals: NONE *PRIMARY CARE P,. [Primary Care Provider] - As per Instructions
[2018-04-14] MEDS ORDERED: NS 2,000 ML IV ONE (14:19)
[2018-04-14 14:26] LABS: PLATELET COUNT 765 10^3/uL (150-400)
[2018-04-14 14:35] LABS: INR 1.08 (0.83-1.16); PROTIME(PATIENT) 14.2 SEC (12.0-15.0)
[2018-04-14] MEDS ORDERED: ACETAMINOPHEN 325 MG TAB PO PRN (15:11)
[2018-04-14] MEDS ORDERED: ONDANSETRON DISINTEGRATING 4 MG TAB PO PRN (15:12)
[2018-04-14] MEDS ORDERED: ONDANSETRON 4 MG/2 ML VIAL IVP PRN (15:12)
[2018-04-14] MEDS ORDERED: IOPAMIDOL (ISOVUE-300) 100 ML BTL ONE (15:17)
--- NOTE | 2018-04-14 15:22 | PDGENHP ---
History and Physical - Chief Complaint vomiting - History of Present Illness 82yo M with history of CAD just discharged yesterday from this hospital after 10 day stay for post-influenza Strep pneumonia complicated by ARDS and septic shock who presents with acute onset vomiting and lethargy this morning. Was feeling well and on a good trajectory at hospital discharge yesterday; didn't even need home PT/OT. Was on room air at that time and had completed antibiotics (ceftriaxone) and tamiflu. Slept ok last night. Woke up this morning and has had around 10 bouts of non-bloody emesis associated with abdominal distention. Feeling very weak. No fevers, chills, shortness of breath , cough, rashes. No pleuritic pain. Family had checked O2 sats at home and were >90%. Given his new symptoms, family brought him to ED where he was found to have significant increase in WBC from 12k to 38k, ASA, and elevated lactate at 2.8. His BP was stable with good O2 saturations on room air (placed on 2L for comfort). He is being admitted for further evaluation and management. Case discussed with ED physician Rick Ferrara. Prior hospital stay reviewed. History Information - Allergies/Home Medication List Allergies/Adverse Reactions: codeine Allergy (Verified 04/14/18 13:48) Home Medications: Cholecalciferol (Vitamin D3) [Vitamin D3] 2,000 unit PO HS 04/03/18 [Last Taken 04/13/18] Clopidogrel Bisulfate [Clopidogrel] 75 mg PO DAILY 04/03/18 [Last Taken 04/13/18 ] Omeprazole 40 mg PO DAILY 04/03/18 [Last Taken 04/13/18] Pravastatin Sodium 40 mg PO HS 04/03/18 [Last Taken 04/13/18] I have personally reviewed and updated: family history, medical history, social history, surgical history - Past Medical History Additional medical history: CAD s/p stent, h/o TIA, recent hospital stay (04/03- 04/13) for post-influenza A Strep pyogenes pneumonia complicated by ARDS - Surgical History Reports: cholecystectomy - Family History Positive for: non-pertinent - Social History Smoking Status: Never smoked Alcohol Use: None Drug Use: None Additional social history: Lives in [place], visiting daughter who is RN at this hospital Review of Systems Review of Systems: ROS: 10pt was reviewed & negative except for what was stated in HPI & below Physical Exam Physical Exam: Temp Pulse Resp BP Pulse Ox 36.3 C 95 24 H 120/68 96 04/14/18 13:49 04/14/18 14:45 04/14/18 14:45 04/14/18 14:45 04/14/18 14:45 O2 (L/minute) 3 Constitutional: uncomfortable, other (thin) Eyes: PERRL, anicteric sclera, EOMI Ears, Nose, Mouth, Throat: dry mucous membranes Cardiovascular: no murmur, rub, or gallop, tachycardia, No edema Respiratory: no respiratory distress, reduced air movement, rhonchi, No expiratory wheeze Gastrointestinal: tenderness (mild, diffuse), distension, No normoactive bowel sounds Genitourinary: no bladder fullness, no bladder tenderness Skin: warm, normal color, no rashes or abrasions, no fluctuance, no induration, No mottled Musculoskeletal: full muscle strength, no muscle tenderness, normal joint ROM, no joint effusions Neurologic: AAOx3 Psychiatric: interacting appropriately, not anxious, not encephalopathic, thought process linear Lab Data & Imaging Review 04/14/18 14:06 04/14/18 14:06 WBC 38.79 10^3/uL (3.80-9.50) H 04/14/18 14:06 RBC 4.31 10^6/uL (4.40-6.38) L 04/14/18 14:06 Hgb 13.3 g/dL (13.7-17.5) L 04/14/18 14:06 Hct 41.6 % (40.0-51.0) 04/14/18 14:06 MCV 96.5 fL (81.5-99.8) 04/14/18 14:06 MCH 30.9 pg (27.9-34.1) 04/14/18 14:06 MCHC 32.0 g/dL (32.4-36.7) L 04/14/18 14:06 RDW 14.0 % (11.5-15.2) 04/14/18 14:06 Plt Count 765 10^3/uL (150-400) H 04/14/18 14:06 MPV 10.5 fL (8.7-11.7) 04/14/18 14:06 Neut % (Auto) 91.8 % (39.3-74.2) H 04/14/18 14:06 Lymph % (Auto) 1.2 % (15.0-45.0) L 04/14/18 14:06 [place] % (Auto) 4.5 % (4.5-13.0) 04/14/18 14:06 Eos % (Auto) 0.1 % (0.6-7.6) L 04/14/18 14:06 Baso % (Auto) 0.3 % (0.3-1.7) 04/14/18 14:06 Nucleat RBC Rel Count 0.0 % (0.0-0.2) 04/14/18 14:06 Absolute Neuts (auto) 35.56 10^3/uL (1.70-6.50) H 04/14/18 14:06 Absolute Lymphs (auto) 0.48 10^3/uL (1.00-3.00) L 04/14/18 14:06 Absolute Monos (auto) 1.76 10^3/uL (0.30-0.80) H 04/14/18 14:06 Absolute Eos (auto) 0.03 10^3/uL (0.03-0.40) 04/14/18 14:06 Absolute Basos (auto) 0.13 10^3/uL (0.02-0.10) H 04/14/18 14:06 Absolute Nucleated RBC 0.00 10^3/uL (0-0.01) 04/14/18 14:06 Immature Gran % 2.1 % (0.0-1.1) H 04/14/18 14:06 Seg Neutrophils % 92.1 % 04/14/18 14:06 Band Neutrophils % 0.0 % 04/14/18 14:06 Lymphocytes % 3.0 % 04/14/18 14:06 Monocytes % 4.9 % 04/14/18 14:06 Eosinophils % 0.0 % 04/14/18 14:06 Basophils % 0.0 % 04/14/18 14:06 Metamyelocytes % 0.0 % 04/14/18 14:06 Myelocytes % 0.0 % 04/14/18 14:06 Promyelocytes % 0.0 % 04/14/18 14:06 Blast Cells % 0.0 % 04/14/18 14:06 Immature Gran # 0.83 10^3/uL (0.00-0.10) H 04/14/18 14:06 Absolute Seg Neuts 35.73 10^3/uL (1.70-6.50) H 04/14/18 14:06 Absolute Band Neuts 0.00 10^3/uL (0.00-0.70) 04/14/18 14:06 Absolute Lymphocytes 1.16 10^3/uL (1.00-3.00) 04/14/18 14:06 Absolute Monocytes 1.90 10^3/uL (0.30-0.80) H 04/14/18 14:06 Absolute Eosinophils 0.00 10^3/uL (0.03-0.40) L 04/14/18 14:06 Absolute Basophils 0.00 10^3/uL (0.02-0.10) L 04/14/18 14:06 Absolute Metamyelocyte 0.00 10^3/mL (0.00-0.00) 04/14/18 14:06 Absolute Myelocytes 0.00 10^3/mL (0.00-0.00) 04/14/18 14:06 Absolute Promyelocytes 0.00 10^3/uL (0.00-0.00) 04/14/18 14:06 Absolute Plasma Cells 0.00 10^3/uL (0.00-0.00) 04/14/18 14:06 Nucleated RBCs 0 /100 WBC (0-0) 04/14/18 14:06 Absolute Blast Cells 0.00 10^3/uL (0.00-0.00) 04/14/18 14:06 Plasma Cells % 0.0 % 04/14/18 14:06 Platelet Estimate INCREASED (ADEQ) H 04/14/18 14:06 Oval Macrocytes 2+ H 04/14/18 14:06 PT 14.2 SEC (12.0-15.0) 04/14/18 14:06 INR 1.08 (0.83-1.16) 04/14/18 14:06 APTT 26.8 SEC (23.0-38.0) 04/14/18 14:06 VBG Lactic Acid 2.8 mmol/L (0.7-2.1) H 04/14/18 14:05 Sodium 139 mEq/L (135-145) 04/14/18 14:06 Potassium 4.7 mEq/L (3.5-5.2) 04/14/18 14:06 Chloride 107 mEq/L (97-110) 04/14/18 14:06 Carbon Dioxide 21 mEq/l (22-31) L 04/14/18 14:06 Anion Gap 11 mEq/L (6-14) 04/14/18 14:06 BUN 40 mg/dL (7-23) H 04/14/18 14:06 Creatinine 1.4 mg/dL (0.7-1.3) H 04/14/18 14:06 Estimated GFR 49 04/14/18 14:06 Glucose 198 mg/dL (70-100) H 04/14/18 14:06 Calcium 9.5 mg/dL (8.5-10.4) 04/14/18 14:06 Total Bilirubin 1.1 mg/dL (0.1-1.4) 04/14/18 14:06 POC Troponin I 0.01 ng/mL (0.00-0.08) 04/14/18 14:15 Visualized and Interpreted Chest x-ray results: Yes Visualized and Interpreted imaging results: Yes Interpretation: CXR: improved aeration in bilateral lung [place], no pleural effusion (interp by me) EKG additional interpertation: ECG: sinus tachycardia, no acute ischemic changes (interp by me) Assessment & Plan Assessment: 82yo M with history of CAD just discharged yesterday from this hospital after 10 day stay for post-influenza Strep pneumonia complicated by ARDS and septic shock who presents with acute onset vomiting and lethargy this morning found to be meeting severe sepsis criteria. Plan: 1. Severe sepsis: Significant increase in WBC, tachycardic, elevated lactate. Procalcitonin still down-trending. CXR with improving infiltrates but no lateral film. This all could be dehydration but with increase in WBC (12k->38k) , concern for new infectious process: complication of previous pneumonia such as empyema, C diff, etc. - IVF, blood, urine, sputum cultures - CT chest and abdomen w/contrast - Broad spec abx with vancomycin (trough goal 15-20) and zosyn 4.5g q6h 2. Acute onset vomiting: No associated diarrhea but with elevated WBC and recent antibiotics, C diff a possibility. - CT abdomen as above - Check GI PCR 3. ASA: Suspect prerenal - Recheck after IVF 4. Thrombocytosis: Plts 700s. Likely concentrated from dehydration + reactive from #1. - IVF, monitor 5. H/o influenza A infection: s/p course of tamiflu 6. H/o Strep pyogenes pneumonia: s/p course of ceftriaxone 7. H/o ARDS: Fortunately, oxygenating well on room air currently. 8. CAD: s/p stents 15 years ago. No anginal sxs. Trop negative. Continue plavix , statin. VTE ppx: LMWH Code: full Diet: cardiac Dispo: Admit as inpatient to SDU
[2018-04-14] MEDS ORDERED: BISACODYL 10 MG SUPP PR PRN (16:23)
[2018-04-14] MEDS ORDERED: MAGNESIUM HYDROXIDE 30 ML UDCUP PO PRN (16:23)
[2018-04-14] MEDS ORDERED: LACTULOSE 20 GM/30 ML UDCUP PO PRN (16:23)
[2018-04-14] MEDS ORDERED: ALBUTEROL 60 PUFFS/8 GM MDI IH PRN (16:30)
--- NOTE | 2018-04-14 16:31 | CPEKG ---
Test Reason : OPEN Blood Pressure : / mmHG Vent. Rate : 102 BPM Atrial Rate : 102 BPM P-R Int : 122 ms QRS Dur : 094 ms QT Int : 353 ms P-R-T Axes : 067 071 040 degrees QTc Int : 460 ms Sinus tachycardia Confirmed by Rick Ferrara ([id number]) on 04/14/2018 4:30:40 PM Referred By: Confirmed By:Rick Ferrara
[2018-04-14] MEDS ORDERED: VANCOMYCIN HCL/NORMAL SALINE 250 ML IV SCH (17:00)
[2018-04-14] MEDS ORDERED: PIPERACILLIN/TAZO 4.5 GM/DEX 100 ML IV SCH (17:00)
[2018-04-14] MEDS ORDERED: LIDOCAINE 2% JELLY 20 ML (UROJECT) ONE (17:20)
[2018-04-14] MEDS: POLYETHYLENE GLYCOL 3350 17 GM PKT PO SCH (17:46)
[2018-04-14] MEDS: PIPERACILLIN/TAZO 4.5 GM/DEX 100 ML IV SCH (17:47)
[2018-04-14] MEDS: TAMSULOSIN HCL 0.4 MG CAP PO SCH (18:21)
--- NOTE | 2018-04-14 19:13 | PDMN ---
Medical Necessity Medical necessity: Pt meets IP criteria as of 04/14/2018 per and MCG M-160 ( sepsis); est los > 2 mn for ongoing tx and management of severe sepsis with leukocytosis, tachycardia and elevate lactate in the setting of pneumonia as well as ASA and thrombocytosis.
[2018-04-14] MEDS: NYSTATIN SUSP 500000 UNIT/5 ML UD LIQ PO SCH (21:00)
[2018-04-14] MEDS: PRAVASTATIN SODIUM 40 MG TAB PO SCH (21:22)
[2018-04-14] MEDS: guaiFENesin 600 MG TAB.ER PO SCH (21:26)
[2018-04-15] MEDS: PIPERACILLIN/TAZO 4.5 GM/DEX 100 ML IV SCH ×3 (00:56→13:00)
[2018-04-15] MEDS: NS 1,000 ML IV SCH ×2 (02:00→17:40)
[2018-04-15] MEDS: SENNOSIDES/DOCUSATE SODIUM TAB PO SCH ×3 (06:37→20:13)
[2018-04-15 06:57] LABS: PLATELET COUNT 517 10^3/uL (150-400)
[2018-04-15] MEDS ORDERED: NS 1,000 ML IV ONE ×2 (07:35→09:30)
[2018-04-15] MEDS: guaiFENesin 600 MG TAB.ER PO SCH ×2 (08:38→20:14)
[2018-04-15] MEDS: TAMSULOSIN HCL 0.4 MG CAP PO SCH (08:38)
[2018-04-15] MEDS: PANTOPRAZOLE SODIUM 40 MG TAB PO SCH (08:38)
[2018-04-15] MEDS: CLOPIDOGREL BISULFATE 75 MG TAB PO SCH (08:38)
[2018-04-15] MEDS: NYSTATIN SUSP 500000 UNIT/5 ML UD LIQ PO SCH ×3 (08:39→20:14)
[2018-04-15] MEDS: ENOXAPARIN 40 MG/0.4 ML SYR SC SCH (08:39)
[2018-04-15] MEDS ORDERED: TEARS/DEXTRAN 70/HYPROMELLOSE 15 ML OPHT.BTL EACHEYE PRN (09:10)
[2018-04-15] MEDS: POLYETHYLENE GLYCOL 3350 17 GM PKT PO SCH (10:00)
--- NOTE | 2018-04-15 10:02 | ASMTCMCOM ---
CM Note CM Note Notes: Pt is an 82 yo M with hx of CAD who was discharged independently from yesterday after 10 day stay. Presents with acute onset vomiting and lethargy, meets criteria for acute sepsis. 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 Discharge needs unknown at this time. CM to follow. Plan: TBD Date Signed: 04/15/2018 10:02 AM Electronically Signed By:KESHAV Shaikh
--- NOTE | 2018-04-15 11:58 | GCON ---
INPATIENT INFECTIOUS DISEASE CONSULTATION REFERRING PHYSICIAN: Tyrone Triana MD REASON FOR REFERRAL: Leukocytosis readmission following group A strep pneumonia. HISTORY OF PRESENT ILLNESS: Patient is an 82-year-old male who was admitted to [facility] initially on 04/03/2018, due to full influenza and pneumonia. Patient was admitted and treated f or approximately 10 days. He received treatment for influenza and bronchoscopy revealed group A stre p as the cause of focal bacterial infiltrates, secondary to the underlying influenza. Patient was tr eated appropriately with antibiotic and discharged on 04/13/2018, off antibiotic. Patient was home l ess than 24 hours when he re-presented back to [facility] complaining of vomiting. Greta johnosn had a restful night's sleep the night before representation, but when he woke up the morning of readmission, he had 10 episodes of nonbloody emesis and abdominal distention. He denied any fevers o r chills, but was feeling very weak. In the emergency room, he was found to have a very significant leukocytosis to 38,000. He also had an elevated lactate and a creatinine that was at 1.4. Patient w as admitted back to the intensive care unit. He has kept his blood pressure is nominally good with I V fluids and bolus. Overnight, he was given significant bowel regimens that allowed him to have nume veda bowel movements. He is feeling somewhat better this morning. Blood cultures obtained on 2018, are no growth to date. PAST MEDICAL HISTORY: 1. Coronary artery disease. 2. History of transient ischemic attacks. 3. Influenza A and group A strep pneumonia complicated by ARDS. PAST SURGICAL HISTORY: Status post cholecystectomy. ANTIBIOTICS: Zosyn. ALLERGIES: Patient is allergic to codeine. SOCIAL HISTORY: The patient is not a tobacco user. No alcohol or drug use. Patient lives in [facility] most the time, but he is visiting his daughter here in [place]. FAMILY HISTORY: Reviewed, but noncontributory. REVIEW OF SYSTEMS: Other than that detailed above this present illness, a comprehensive 10-system re view is negative. PHYSICAL EXAMINATION: VITAL SIGNS: Temperature maximum is 37.3, temperature current is 36.8, heart rate 72, respiratory rate is 19, blood pressure is 90/49. GENERAL: Patient is a well-formed, well-n ourished appearing elderly male in no acute distress. He is not toxic in appearance. He is alert an d oriented x3. He is very pleasant in demeanor. HEENT: Normocephalic for age. Atraumatic. No scl eral icterus. No drainage from the nares. Eyes lids and conjunctivae are within normal limits. Pup ils are equal and round bilaterally. NECK: Supple. No meningismus. LUNGS: Clear to auscultation bilaterally good effort. HEART: Regular rate and rhythm. No significant peripheral edema. ABDOMEN : Slightly distended. No masses. Minimally tender. SKIN: Warm and dry to the touch. No rash or lesion noted. MUSCULOSKELETAL: No muscle belly tenderness is noted. No joint line effusion or arth ritis seen. NEURO: Cranial nerves 2-12 seem to be intact. Peripheral sensation seems intact in ext remities. LABORATORY DATA: Patient has a CBC dated 04/15/2018, shows white blood cell count of 17.11, hemoglob in 9.1, hematocrit of 27.6, and platelet count of 517. Differential is slightly left-shifted with 84 % segmented neutrophils. Serum chemistries on 04/15/2018, show sodium 138, potassium 4.2, chloride o f 112, bicarbonate of 21, BUN of 28, creatinine 1.0. Urinalysis on 04/14/2018, are all within normal limits. MICROBIOLOGIC DATA: Patient has blood cultures, 2 sets taken 04/14/2018, which are no growth to date . Urine culture on 04/14/2018, is also no growth to date. Stool multiplex PCR is negative. RADIOLOGIC DATA: Patient has a chest, abdomen, pelvis CT dated 04/14/2018, which shows multifocal bi lateral pneumonia with cavitation in the right upper lobe. Also shows a fluid-filled dilated esophag us suggestive of esophageal dysmotility/reflux. Also shows prostatic enlargement with protrusion int o the bladder causing bladder outlet obstruction. Also reveals severe constipation with fecal impact ion. ASSESSMENT: Leukocytosis and presentation with dehydration, nausea, vomiting. I suspect that this i s centered around the severe constipation/obstipation seen on abdomen and pelvic CT. It is unlikely that this is directly bacteremic in result. Blood cultures are not revealing yet, although in cases of severe constipation, where bowel translocation does occur, gram-negative rods and anaerobes would be the most common pathogens. We will continue with Zosyn monotherapy for now. Agree with aggressiv e bowel regimens and monitoring of fluid status and blood pressure. PLAN: 1. Continue Zosyn monotherapy. 2. Follow his clinical course. 3. Continued bowel regimen. /[id number]/MODL
[2018-04-15] MEDS ORDERED: ALBUMIN 5% 500 ML IV ONE (14:16)
[2018-04-15] MEDS ORDERED: ALBUMIN 5% 250 ML BOTTLE IV ONE (16:19)
[2018-04-15] MEDS ORDERED: ALBUMIN 5% 500 ML BOTTLE IV ONE (16:27)
--- NOTE | 2018-04-15 16:35 | HOSPPROG ---
Hospitalist Progress Note Assessment/Plan: Assessment: 82yo M with history of CAD just discharged yesterday from this hospital after 10 day stay for post-influenza Strep pneumonia complicated by ARDS and septic shock who presents with acute onset vomiting and lethargy this morning found to be meeting severe sepsis criteria. Plan: # Severe sepsis: Significant increase in WBC, tachycardic, elevated lactate. Procalcitonin still down-trending. CXR with improving infiltrates but no lateral film. This all could be dehydration but with increase in WBC (12k->38k) , concern for new infectious process: complication of previous pneumonia such as empyema, C diff, etc. - IVF, blood, urine, sputum cultures, continue empiric abx for now, appreciate ID consult # Constipation: abdominal CT personally reviewed with significant constipation, started on bowel protocol and feeling much better # ASA: prerenal, improved after IVF # hypotension: suspect due to volume depletion as patient continues to be fluid responsive, he does have a baseline low bp --around 110/70 per his report (last hospitalization all bp was low also) # Thrombocytosis: Likely concentrated from dehydration + reactive from #1. Has come down some overnight # H/o influenza A infection: s/p course of tamiflu # H/o Strep pyogenes pneumonia: s/p course of ceftriaxone # H/o ARDS: Fortunately, oxygenating well on room air currently. # CAD: s/p stents 15 years ago. No anginal sxs. Trop negative. Continue plavix , statin. VTE ppx: LMWH Code: full Diet: cardiac Dispo: Admit as inpatient to SDU > 40 min critical care time spent in evaluation of labs/imaging, review of care plan with family and other providers Subjective: no significant overnight events, patient feels much better since having BM last night and this am, BP remains low but he feels fine Objective: Vital Signs Temp Pulse Resp BP Pulse Ox 36.7 C 78 19 105/63 96 04/15/18 12:00 04/15/18 13:00 04/15/18 13:00 04/15/18 13:00 04/15/18 13:00 Microbiology 04/15/18 06:20 Gastrointestinal Tract Panel (PCR) - Final Stool No Organism Detected By Pcr Laboratory Results 04/15/18 05:45 04/15/18 05:45 01/08/2604/15/18 04/16/18 05:59 05:59 05:59 Intake Total 5917 200 Output Total 1350 250 Balance 4567 -50 PT 14.2 SEC (12.0-15.0) 04/14/18 14:06 INR 1.08 (0.83-1.16) 04/14/18 14:06 awake alert anicteric op clear rrr no mrg cta b soft nt nd no cce warm dry well perfused oriented appropriate ICD10 Worksheet Patient Problems: Problems Problem Status Onset Influenza Acute Septic shock Acute Pneumonia Acute Severe sepsis Acute
--- NOTE | 2018-04-15 16:55 | GCON ---
PULMONARY/CRITICAL CARE CONSULTATION DATE OF CONSULTATION: 04/15/2018 REFERRING PHYSICIAN: Tyrone Triana MD REASON FOR REFERRAL: Evaluation and management of hypotension and vomiting. HISTORY: The patient is an 82-year-old male who was just discharged from [facility] after being admitted on [place] and being found to have influenza with superimposed bacterial pneumonia. He had extensive right- sided infiltrates. He was severely ill, intubated, and treated with prone ventilation, but improved fairly quickly and was discharged 2 days ago. After being home just 1 day, he was readmitted after developing multiple episodes of vomiting, as well as abdominal distention. He was also found to have an increase in his creatinine and marked increase in his white blood count. His blood pressure was initially okay after some IV fluids. He had a bowel regimen that allowed him to have several bowel movements, he is feeling a bit better. However, having some hypotension following this with systolic blood pressures in the 80s to low-90s. His blood pressure then went down to as low as the 70s. I asked for [facility] fluid challenge, and he was responsive to fluid, so increased IV fluids have been given and his blood pressure has increased. PAST MEDICAL HISTORY: 1. Coronary artery disease. 2. History of TIAs. 3. Status post recent hospitalization for influenza A and group A strep pneumonia. MEDICATIONS: At the time of admission include: Albuterol, pravastatin, omeprazole, clopidogrel, guaifenesin, and nystatin. ALLERGIES: Codeine. SOCIAL HISTORY: The patient does not smoke or drink. He is from [place], but is visiting his daughter, a nighttime ICU nurse here at [facility]. FAMILY HISTORY: Unremarkable. REVIEW OF SYSTEMS: A 10-point review of systems adds nothing to the History of Present Illness. PHYSICAL EXAMINATION: GENERAL: The patient is awake, alert, and in no acute distress. VITAL SIGNS: Blood pressure is now up to 105/63, with a heart rate of 78. He is afebrile. Oxygen saturations are 96% on room air. HEENT: Normocephalic and atraumatic. No icterus. NECK: No adenopathy. Trachea is midline. CHEST: He has a few rales on the right. CARDIAC: Regular rate and rhythm without murmur. ABDOMEN: Soft, nontender. Bowel sounds are present. EXTREMITIES: No clubbing, cyanosis, or edema. NEURO: Patient is awake, alert , and oriented. He has no gross motor or sensory deficits. LABORATORY: White blood count is 17.1, down from 38.8 at admission (zero percent bands). Chemistry group shows a BUN of 28, with a creatinine of 1.0, down from 1.4. Glucose is 107. A venous lactate is 1.7, down from 2.8. Procalcitonin is 0.77. A chest x-ray shows improvement in the right-sided infiltrate seen during the prior hospitalization. Images reviewed by me. A CT scan of the chest demonstrates a multifocal pneumonia with blebs/possible cavitation on the right. He also has prostatic enlargement with protrusion into the bladder causing bladder outlet obstruction. CT of the abdomen demonstrates severe fecal impaction in the rectum and distal colon. ASSESSMENT: 1. Hypotension. The patient developed intermittent hypotension despite fluid resuscitation. A fluid challenge on the Non-Invasive Cardiac Output Monitor suggested fluid responsiveness, and he has responded to further IV fluids, with an increased blood pressure. His creatinine has come down. The cause for his hypotension and elevated white blood count is most likely severe constipation, with possible translocation of bacteria. 2. Severe constipation. This is improved clinically, with several bowel movements. He is being treated with Zosyn for possible translocation related to this or another infection, which has not yet been identified. 3. Acute kidney injury. This is improved with hydration. 4. Status post recent pneumonia. His CAT scan demonstrates a multifocal pneumonia with a possible cavitation, although I think it looks to me more like a bleb, rather than a discrete cavity. 5. Probable bladder outlet obstruction. The patient has a Brar catheter and should probably keep this in during this hospital and at discharge until evaluated by a urologist. RECOMMENDATIONS: 1. Continue IV fluids. 2. Continue Zosyn at least for today, consider stopping tomorrow. ID is following. 3. Follow renal function. /[id number]/MODL MTDD
[2018-04-15] MEDS: PIPERACILLIN NA/TAZO 4.5 GM in D5W 100 ML IV SCH ×2 (17:40→23:58)
[2018-04-15] MEDS: PRAVASTATIN SODIUM 40 MG TAB PO SCH (20:14)
[2018-04-16] MEDS ORDERED: SODIUM CL NASAL 45 ML BTL ONE (02:29)
[2018-04-16 04:36] LABS: PLATELET COUNT 516 10^3/uL (150-400)
[2018-04-16] MEDS: PIPERACILLIN NA/TAZO 4.5 GM in D5W 100 ML IV SCH ×2 (05:48→12:11)
[2018-04-16] MEDS: SENNOSIDES/DOCUSATE SODIUM TAB PO SCH ×2 (08:35→22:25)
[2018-04-16] MEDS: TAMSULOSIN HCL 0.4 MG CAP PO SCH (08:35)
[2018-04-16] MEDS: CLOPIDOGREL BISULFATE 75 MG TAB PO SCH (08:35)
[2018-04-16] MEDS: PANTOPRAZOLE SODIUM 40 MG TAB PO SCH (08:35)
[2018-04-16] MEDS: NYSTATIN SUSP 500000 UNIT/5 ML UD LIQ PO SCH ×3 (08:36→21:24)
[2018-04-16] MEDS: POLYETHYLENE GLYCOL 3350 17 GM PKT PO SCH (08:36)
[2018-04-16] MEDS: ENOXAPARIN 40 MG/0.4 ML SYR SC SCH (08:36)
[2018-04-16] MEDS: guaiFENesin 600 MG TAB.ER PO SCH ×2 (08:36→21:24)
--- NOTE | 2018-04-16 09:02 | HOSPPROG ---
Hospitalist Progress Note Assessment/Plan: Assessment: 82yo M with history of CAD just discharged yesterday from this hospital after 10 day stay for post-influenza Strep pneumonia complicated by ARDS and septic shock who presents with acute onset vomiting and lethargy this morning found to be meeting severe sepsis criteria. Plan: # Severe sepsis: Significant increase in WBC, tachycardic, elevated lactate on arrival without any clear source--pna does appear improved from prior, cultures with ngtd but given continued improvement on zosyn will continue for now. Appreciate ID input. ? gut translocation in the setting of severe constipation as next # Constipation: now having BMs on bowel protocol--discussed importance of not going too long without a BM in the future # ASA: prerenal, improved after IVF # hypotension: now resolved, some due to volume depletion but concerning given other s/s of sepsis as well # Thrombocytosis: Likely concentrated from dehydration + reactive from #1. Continues to trend down. # H/o influenza A infection: s/p course of tamiflu # H/o Strep pyogenes pneumonia: s/p course of ceftriaxone # H/o ARDS: Fortunately, oxygenating well on room air currently. # CAD: s/p stents 15 years ago. No anginal sxs. Trop negative. Continue plavix , statin. VTE ppx: LMWH Code: full Diet: cardiac Dispo: will transfer to med surg Care plan reviewed with DR. Gorves and multidisciplinary team on rounds, further hx reviewed with present at bedside. Subjective: patient denies any new issues overnight, he has had a BM this am, no fever or chills today, no new complaints, BP has normalized Objective: Vital Signs Temp Pulse Resp BP Pulse Ox 36.6 C 81 25 H 138/67 H 96 04/15/18 18:00 04/16/18 07:30 04/16/18 07:30 04/16/18 07:30 04/16/18 07:30 Microbiology 04/15/18 06:20 Gastrointestinal Tract Panel (PCR) - Final Stool No Organism Detected By Pcr Laboratory Results 04/16/18 04:22 04/16/18 04:22 04/15/18 04/16/18 04/17/18 05:59 05:59 05:59 Intake Total 5917 5760 Output Total 1350 2550 Balance 4567 3210 PT 14.2 SEC (12.0-15.0) 04/14/18 14:06 INR 1.08 (0.83-1.16) 04/14/18 14:06 awake alert anicteric op clear rrr no mrg cta b soft nt nd no cce warm dry well perfused oriented appropriate ICD10 Worksheet Patient Problems: Problems Problem Status Onset Pneumonia Acute Severe sepsis Acute Influenza Acute Septic shock Acute
--- NOTE | 2018-04-16 13:40 | PCMIDPN ---
Assessment/Plan: Assessment/Plan: * Leukocytosis: Significant clinical improvement with improving white blood cell count. No clearly defined etiology although could be potentially associated with GI translocation in the setting of obstipation which is now resolved. Doubt this is due to active ongoing pneumonia given lack of respiratory symptoms. Will continue empiric Zosyn pending further culture data and clinical course. Will change this to 3.375 g IV Q 6 hr given no isolation of Pseudomonas. * Right upper lobe cavity: Unclear if this is related to recent influenza and group a streptococcal pneumonia versus other etiology (for example aspergilloma) . Will need repeat imaging in approximately 6 weeks to further assess. Do not feel additional evaluation with repeat bronchoscopy warranted given lack of respiratory symptoms. 04/16/18 13:34 Subjective: Patient's recent clinical course and findings reviewed. Dr. Verduzco is consultation reviewed. Patient feels significantly improved. No further vomiting. No abdominal pain. Patient has had several bowel movements. No significant cough or shortness of breath. Discussed with patient regarding endemic mycoses noting that he lives in [place] (endemic for histoplasmosis) but has not spent significant time in [facility]. Objective: Vital Signs Temp Pulse Resp BP Pulse Ox 37.0 C 67 20 118/71 96 04/16/18 11:52 04/16/18 11:52 04/16/18 11:52 04/16/18 12:12 04/16/18 11:52 Microbiology 04/15/18 06:20 Gastrointestinal Tract Panel (PCR) - Final Stool No Organism Detected By Pcr Laboratory Results 04/16/18 04:22 04/16/18 04:22 04/15/18 04/16/18 04/17/18 05:59 05:59 05:59 Intake Total 5917 5760 Output Total 1350 2550 Balance 4567 3210 Zosyn # 2 Blood cultures x2 no growth Urine culture pending Chest CT showing multifocal pneumonia with right upper lobe cavity with some central debris - Physical Exam General Appearance: alert, no apparent distress, non-toxic EENT: No scleral icterus, No conjunctival petechiae Respiratory: lungs clear, No respiratory distress Cardiac/Chest: regular rate, rhythm, No systolic murmur Extremities: No inflammation Abdomen: non-tender, No distended Skin: No embolic lesions - Time Spent With Patient Time Spent with Patient: greater than 35 minutes Time Spent with Patient: Greater than 35 minutes spent on this patients care, greater than 50% of time spent counseling, educating, and coordinating care regarding the above mentioned plan. ICD10 Worksheet Patient Problems: Problems Problem Status Onset Pneumonia Acute Severe sepsis Acute Influenza Acute Septic shock Acute
--- NOTE | 2018-04-16 15:15 | PDINTPN ---
Healthcare Project Manager Progress Note Assessment/Plan: Assessment: Recent pneumonia: Influenza and group A strep. Clinically doing well. Denies shortness of breath. Oxygenation is fine on room air. No cough or mucus. Persistent changes on x-ray/upper lobe cavity, will need to be followed for resolution as an outpatient. Discussed with the patient and his family. On Zosyn, but more for GI concerns as opposed to active pneumonia. Bronchoscopy on 05/04 grew only group a strep. No evidence for Aspergillus or another infectious organism. Volume depletion, syncope. Status post fluid resuscitation. BUN and creatinine now have normalized. Secondary to GI issues, perhaps related to constipation/impaction. Leukocytosis may have been related to bacterial translocation. On Zosyn secondary to these concerns. Infectious Disease following. Constipation. Resolved. Exam in radiologic studies negative. Urinary retention: Brar catheter in place. On Flomax. Prophylaxis: On enoxaparin and pantoprazole. Anemia: Hematocrit stable at approximately 27. Plan: Continue present care. Can transfer to a medical-surgical bed from my standpoint. Okay to discontinue Zosyn from a pulmonary standpoint. Outpatient follow-up with a CT scan in approximately 6 weeks will be recommended. This will need to be done at home in [place]. 30 min of critical care time spent directly with the patient. Discussed with the patient and his , Infectious Disease, nursing, and the ICU multi disciplinary team. Subjective: Denies shortness of breath. No mucus, no cough. No chest pain. Denies pain. Walked earlier, did okay. Objective: Vital Signs Temp Pulse Resp BP Pulse Ox 37.0 C 67 20 118/71 96 04/16/18 11:52 04/16/18 11:52 04/16/18 11:52 04/16/18 12:12 04/16/18 11:52 Microbiology 04/15/18 06:20 Gastrointestinal Tract Panel (PCR) - Final Stool No Organism Detected By Pcr Laboratory Results 04/16/18 04:22 04/16/18 04:22 04/15/18 04/16/18 04/17/18 05:59 05:59 05:59 Intake Total 5917 5760 Output Total 1350 2550 Balance 4567 3210 PT 14.2 SEC (12.0-15.0) 04/14/18 14:06 INR 1.08 (0.83-1.16) 04/14/18 14:06 Laboratory Tests 04/16/18 04:22 Calcium 7.5 L Phosphorus 2.[address] reviewed on PACS: Infiltrates with some nodularity on the right with a right upper lobe cavity. Previous bronchoscopy results reviewed: Group a strep only. No Aspergillus, negative for AFB/MTB. Physical Exam - Physical Exam General Appearance: alert, no apparent distress EENT: PERRL/EOMI, No ET tube Neck: normal inspection (No JVD) Respiratory: lungs clear (Anteriorly), decreased breath sounds (At the bases), rales (Present at right base, no consolidation), No pleural rub Cardiac/Chest: regular rate, rhythm, No gallop Abdomen: normal bowel sounds, non-tender, soft Male Genitalia: other (Brar catheter in place, good urine output. Is > Os last 48 hrs) Skin: warm/dry, pallor Extremities: swelling (Upper extremity swelling/puffiness), No pedal edema Neuro/Psych: no motor/sensory deficits, No cognition abnormalities ICD10 Worksheet Patient Problems: Problems Problem Status Onset Pneumonia Acute Severe sepsis Acute Influenza Acute Septic shock Acute
[2018-04-16] MEDS: PIPERACILLIN/TAZO 3.375 GM/DEX 50 ML IV SCH (17:56)
[2018-04-16] MEDS: PRAVASTATIN SODIUM 40 MG TAB PO SCH (21:24)
[2018-04-17] MEDS: PIPERACILLIN/TAZO 3.375 GM/DEX 50 ML IV SCH ×4 (02:54→18:23)
[2018-04-17 06:51] LABS: PLATELET COUNT 571 10^3/uL (150-400)
[2018-04-17] MEDS ORDERED: POTASSIUM CL 20 MEQ TAB PO ONE (08:40)
--- NOTE | 2018-04-17 08:40 | HOSPPROG ---
Hospitalist Progress Note Assessment/Plan: Assessment: 82yo M with history of CAD readmitted to hospital one day after d/c from 10 day stay for post-influenza Strep pneumonia complicated by ARDS and septic shock. He presented with acute onset vomiting and lethargy with severe sepsis criteria. Plan: # Severe sepsis: leukocytosis, tachycardia, elevated lactate on arrival without a clear source--pna appears improved from prior, cultures with ngtd, ? gut translocation in the setting of severe constipation, improving on Zosyn (wbc's 38K --> 9K) -cont Zosyn today, discussed with Dr. Lambert. Can change to Augmentin at d/ c to complete total of 5 days atbx. # Constipation: now having BMs on bowel protocol # ASA: prerenal, improved after IVF # hypotension: resolved -d/c IVF's, taking po well # Thrombocytosis: Likely concentrated from dehydration + APR from #1. Continues to trend down. # H/o influenza A infection: s/p course of tamiflu # H/o Strep pyogenes pneumonia: s/p course of ceftriaxone # H/o ARDS: required intubation during previous hospitalization, now on RA # CAD: s/p stents 15 years ago. No anginal sxs. Trop negative. Continue plavix , statin. VTE ppx: LMWH Code: full Diet: cardiac Dispo: cont inpt, transfer to med surg, PT/OT evals Subjective: Pt feels better, but still notes far from baseline. Still very weak. No fevers/chills. Denies abdominal pain, N/V. Tolerating po. Objective: Vital Signs Temp Pulse Resp BP Pulse Ox 37.0 C 68 14 135/64 H 88 L 04/17/18 07:40 04/17/18 07:40 04/17/18 07:40 04/17/18 07:40 04/17/18 07:40 Microbiology 04/14/18 17:30 Urine Culture - Final Unspecified Laboratory Results 04/17/18 06:30 04/17/18 06:30 04/16/18 04/17/18 04/18/18 05:59 05:59 05:59 Intake Total 5760 2139 Output Total 2550 2950 Balance 3210 -811 PT 14.2 SEC (12.0-15.0) 04/14/18 14:06 INR 1.08 (0.83-1.16) 04/14/18 14:06 - Physical Exam Constitutional: no apparent distress Eyes: PERRL Ears, Nose, Mouth, Throat: moist mucous membranes Cardiovascular: regular rate and rhythym Respiratory: no respiratory distress Gastrointestinal: normoactive bowel sounds, soft, non-tender abdomen Skin: warm Musculoskeletal: full muscle strength Neurologic: AAOx3 Psychiatric: interacting appropriately ICD10 Worksheet Patient Problems: Problems Problem Status Onset Pneumonia Acute Severe sepsis Acute Influenza Acute Septic shock Acute
[2018-04-17] MEDS: POLYETHYLENE GLYCOL 3350 17 GM PKT PO SCH (09:11)
[2018-04-17] MEDS: guaiFENesin 600 MG TAB.ER PO SCH ×2 (09:11→21:38)
[2018-04-17] MEDS: ENOXAPARIN 40 MG/0.4 ML SYR SC SCH (09:12)
[2018-04-17] MEDS: PANTOPRAZOLE SODIUM 40 MG TAB PO SCH (09:12)
[2018-04-17] MEDS: SENNOSIDES/DOCUSATE SODIUM TAB PO SCH ×2 (09:12→21:37)
[2018-04-17] MEDS: CLOPIDOGREL BISULFATE 75 MG TAB PO SCH (09:12)
[2018-04-17] MEDS: NYSTATIN SUSP 500000 UNIT/5 ML UD LIQ PO SCH ×3 (09:12→21:37)
[2018-04-17] MEDS: TAMSULOSIN HCL 0.4 MG CAP PO SCH (09:12)
--- NOTE | 2018-04-17 09:13 | PCMIDPN ---
Assessment/Plan: # Sepsis , possible GI translocation. Blood Cultures are negative --plan short course, dropped down to standard dose to Zosyn yesterday, planned 5 days total. Okay to transition to Augmentin to complete therapy. # Group a strep pneumonia: Residual right upper lobe thin walled cavity, no respiratory symptoms --patient is aware that he needs to get copy of imaging to take with him so that his local physicians can follow up on cavitation Microbiology 04/15/18 06:20 Stool GI PCR: Neg 04/14/18 14:05 Blood Cx (2) NGTD Medications Zosyn 3.375 g IV Q 6 hr, # 3/ Subjective: Patient without complaints, having 3 bowel movements a day, no abdominal pain. Objective: Vital Signs Temp Pulse Resp BP Pulse Ox 37.0 C 68 14 135/64 H 88 L 04/17/18 07:40 04/17/18 07:40 04/17/18 07:40 04/17/18 07:40 04/17/18 07:40 Microbiology 04/14/18 17:30 Urine Culture - Final Unspecified Laboratory Results 04/17/18 06:30 04/17/18 06:30 04/16/18 04/17/18 04/18/18 05:59 05:59 05:59 Intake Total 5760 2139 Output Total 2550 2950 Balance 3210 -811 - Physical Exam General Appearance: alert, no apparent distress, other (Appears younger than stated age) EENT: other (Moist mucous membranes), No thrush Respiratory: crackles (Right upper lobe), No respiratory distress, No accessory muscle use Neck: supple Cardiac/Chest: regular rate, rhythm Extremities: No pedal edema Abdomen: normal bowel sounds, non-tender, soft, No guarding Male Genitalia: weir Skin: pallor, No rash Neuro/Psych: alert, normal mood/affect, oriented x 3 - Time Spent With Patient Time Spent with Patient: greater than 35 minutes (Care coordinated with critical care team and hospitalist) Time Spent with Patient: Greater than 35 minutes spent on this patients care, greater than 50% of time spent counseling, educating, and coordinating care regarding the above mentioned plan. ICD10 Worksheet Patient Problems: Problems Problem Status Onset Pneumonia Acute Severe sepsis Acute Influenza Acute Septic shock Acute
[2018-04-17] MEDS: PRAVASTATIN SODIUM 40 MG TAB PO SCH (21:37)
--- NOTE | 2018-04-17 21:40 | PDINTPN ---
[employer] Clerk Progress Note Assessment/Plan: Assessment: Recent pneumonia: Influenza and group A strep. Clinically doing well. Denies shortness of breath. Oxygenation is fine on room air. No cough or mucus. Persistent changes on x-ray/upper lobe cavity, will need to be followed for resolution as an outpatient. On Zosyn, but for GI concerns as opposed to active pneumonia. Bronchoscopy on 05/04 grew only group a strep. No Aspergillus or another infectious organism grown/identified on cultures. Volume depletion, syncope. Status post fluid resuscitation. BUN and creatinine now have normalized. Secondary to GI issues, perhaps related to constipation/impaction. Leukocytosis may have been related to bacterial translocation. On Zosyn secondary to these concerns. Infectious Disease following. Constipation. Resolved. Exam and radiologic studies negative. Urinary retention: Brar catheter in place. On Flomax. Prophylaxis: On enoxaparin and pantoprazole. Anemia: Hematocrit stable at approximately 27. Plan: Continue present care. Continue Zosyn, total of 5 days. Consider discharge within the next day or 2. Increase mobilization and strengthening. Outpatient follow-up with a CT scan in approximately 6 weeks recommended. This will need to be done at home in [place]. Two-view chest x-ray prior to discharge. Subjective: Doing well. Denies shortness of breath, cough or mucus. He feels breathing is at baseline. Stooling. No abdominal pain or discomfort. No nausea or vomiting Objective: Vital Signs Temp Pulse Resp BP Pulse Ox 37.1 C 79 17 122/59 H 99 04/17/18 16:00 04/17/18 16:00 04/17/18 16:00 04/17/18 16:00 04/17/18 16:00 Microbiology 04/14/18 17:30 Urine Culture - Final Unspecified Laboratory Results 04/17/18 06:30 04/17/18 06:30 04/16/18 04/17/18 04/18/18 05:59 05:59 05:59 Intake Total 5760 2139 118 Output Total 2550 2950 1400 Balance 3210 -811 -1282 PT 14.2 SEC (12.0-15.0) 04/14/18 14:06 INR 1.08 (0.83-1.16) 04/14/18 14:06 Physical Exam - Physical Exam General Appearance: alert, no apparent distress EENT: PERRL/EOMI Neck: normal inspection (No JVD) Respiratory: lungs clear (Anteriorly), rales (At right base. No consolidation) , No rhonchi, No wheezing Cardiac/Chest: regular rate, rhythm, No gallop Abdomen: normal bowel sounds, non-tender, soft Male Genitalia: other (Brar catheter in place secondary to urinary retention) Skin: warm/dry, pallor Extremities: swelling (Upper extremity puffiness resolved), No pedal edema Neuro/Psych: no motor/sensory deficits (Globally weak), No cognition abnormalities ICD10 Worksheet Patient Problems: Problems Problem Status Onset Pneumonia Acute Severe sepsis Acute Influenza Acute Septic shock Acute
[2018-04-18] MEDS: PIPERACILLIN/TAZO 3.375 GM/DEX 50 ML IV SCH ×3 (00:50→12:05)
[2018-04-18 07:57] LABS: PLATELET COUNT 609 10^3/uL (150-400)
[2018-04-18 08:44] VITALS: BP 113/52
[2018-04-18] MEDS: POLYETHYLENE GLYCOL 3350 17 GM PKT PO SCH (09:46)
[2018-04-18] MEDS: PANTOPRAZOLE SODIUM 40 MG TAB PO SCH (09:47)
[2018-04-18] MEDS: ENOXAPARIN 40 MG/0.4 ML SYR SC SCH (09:47)
[2018-04-18] MEDS: NYSTATIN SUSP 500000 UNIT/5 ML UD LIQ PO SCH ×2 (09:47→12:49)
[2018-04-18] MEDS: CLOPIDOGREL BISULFATE 75 MG TAB PO SCH (09:48)
[2018-04-18] MEDS: TAMSULOSIN HCL 0.4 MG CAP PO SCH (09:48)
[2018-04-18] MEDS: guaiFENesin 600 MG TAB.ER PO SCH (09:48)
--- NOTE | 2018-04-18 10:16 | PCMIDPN ---
Assessment/Plan: # Sepsis , possible GI translocation. Blood Cultures are negative. Continues to be improved. --plan short course, dropped down to standard dose to Zosyn yesterday, planned 5 days total. Okay to transition to Augmentin to complete therapy. --dc ok from ID standpoint # Group a strep pneumonia: Residual right upper lobe thin walled cavity, no respiratory symptoms --patient is aware that he needs to get copy of imaging to take with him so that his local physicians can follow up on cavitation Microbiology 04/15/18 06:20 Stool GI PCR: Neg 04/14/18 14:05 Blood Cx (2) NGTD Medications Zosyn 3.375 g IV Q 6 hr, # 4/5 Subjective: feeling well already had BM this AM Objective: Vital Signs Temp Pulse Resp BP Pulse Ox 36.5 C 73 24 H 113/52 L 93 04/18/18 08:00 04/18/18 08:00 04/18/18 08:00 04/18/18 08:00 04/18/18 08:00 Laboratory Results 04/18/18 07:30 04/18/18 07:30 04/17/18 04/18/18 04/19/18 05:59 05:59 05:59 Intake Total 2139 277 Output Total 2950 2800 Balance -811 2521 General Appearance: alert, no apparent distress, Appears younger than stated age EENT: Moist mucous membranes, No thrush Respiratory: no crackles today No respiratory distress, No accessory muscle use Neck: supple Cardiac/Chest: regular rate, rhythm Extremities: No pedal edema Abdomen: normal bowel sounds, non-tender, soft, No guarding Male Genitalia: weir Skin: pallor, No rash Neuro/Psych: alert, normal mood/affect, oriented x 3 ICD10 Worksheet Patient Problems: Problems Problem Status Onset Pneumonia Acute Severe sepsis Acute Influenza Acute Septic shock Acute
[2018-04-18] MEDS: SENNOSIDES/DOCUSATE SODIUM TAB PO SCH (10:48)
--- NOTE | 2018-04-18 16:55 | GDS ---
DISCHARGE DIAGNOSES: 1. Severe sepsis with unclear source, possibly secondary to bacterial translocation from the gut in the setting of severe constipation, sepsis physiology resolved. 2. Constipation, improved. 3. Acute kidney injury, resolved. 4. Thrombocytosis, likely secondary to volume depletion and acute phase reactant secondary to sepsis . 5. History of influenza A, status post course of Tamiflu. 6. History of Streptococcus pyogenes pneumonia, status post prolonged course of ceftriaxone. 7. History of acute respiratory distress syndrome, required intubation during recent hospitalization , now on room air. 8. Coronary artery disease, stable. CONSULTANTS: 1. Dr. Tien Verduzco, Infectious Disease. 2. Dr. Tommy Galdamez, Pulmonology. HISTORY: For details, please see history and physical dated April 14, 2018. In brief, the patient is an 82-year-old male who was recently hospitalized for influenza complicated by group A strep pneum onia, resulting in ARDS, requiring intubation. He recovered from this, [facility], but returned to the hospital with vomiting, fatigue, and volume depletion. He was f ound to have an acute kidney injury and met criteria for severe sepsis with a white count of 38,000 a nd elevated lactate. He was admitted to the hospital for further management. HOSPITAL COURSE: The patient was admitted to the ICU. CT chest, abdomen, and pelvis were performed. His pneumonia actually appeared stable and did not appear this was a worsening process. He was not ed to have severe constipation on his abdomen CT, with fecal impaction, and it is possible he had a b acterial translocation from his gut. He was treated with IV Zosyn for 4 days. Infectious Disease wa s consulted and recommended just a short course of antibiotics. He will complete his 5th day of anti biotics with outpatient oral Augmentin. In addition, he suffered from urinary retention, possibly re lated to his constipation. He was started on Flomax and will be discharged with indwelling Brar cat heter. He is advised to follow up with Urology upon return to [place]. His sepsis physiology resolved . He has been having bowel movements, and condition is improved overall. DISPOSITION: Patient is discharged home in stable condition. DISCHARGE MEDICATIONS: 1. Please see [facility] for completed outpatient medication list. New medications on discharge inclu de Augmentin 875 mg p.o. b.i.d. for 2 more doses to complete a total of 5 days of antibiotics for thi s event. 2. Tamsulosin 0.4 mg p.o. daily, #30, no refills. He will continue all other outpatient medications as previously prescribed. FOLLOWUP: Patient should follow up with Urology and his primary care physician upon return to [place]. /[id number]/MODL
== END 2018-04-18 13:10 | disposition home or self-care (01) | DRG 872 ==
LOC: F2N 16:29
PROVIDERS: ADMIT Internal Medicine; ATTEND Hospitalist
DX: A41.9 Sepsis, unspecified organism (principal); R65.20 Severe sepsis without septic shock; K59.00 Constipation, unspecified; N17.9 Acute kidney failure, unspecified; D47.3 Essential (hemorrhagic) thrombocythemia; I25.10 Atherosclerotic heart disease of native coronary artery without angina pectoris; N40.1 Benign prostatic hyperplasia with lower urinary tract symptoms; N13.8 Other obstructive and reflux uropathy; Z95.5 Presence of coronary angioplasty implant and graft; Z86.73 Personal history of transient ischemic attack (TIA), and cerebral infarction without residual deficits
CPT/HCPCS: 84484-ER; 96365; 97161-GP; 97165-GO; J0696; J1650; J2405; J2543; J3370; P9041; Q9967